=== PATIENT | female | born 1975 | race Caucasian/White ===

== ENCOUNTER 2021-12-31 12:52 | Inpatient (IN) | payer OTHER ==
[2021-12-31] MEDS ORDERED: VANCOMYCIN 1 GM in D5W (PRE-DOCKED) 1,000 MG/250 ML IVPB ONE (16:37)
[2021-12-31] MEDS ORDERED: PIPERACILLIN/TAZOB 3.375 GM 3.375 GM in DEXTROSE 5%-WATER - 50 ML IVPB ONE (16:37)
[2021-12-31] MEDS ORDERED: PIPERACILLIN/TAZOB 3.375 GM 3.375 GM/50 ML BAG IVPB ONE (17:36)
[2021-12-31] MEDS ORDERED: VANCOMYCIN 1 GRAM (PRE-DOCKED) 1,000 MG/250 ML BAG IVPB ONE (17:36)
[2021-12-31 17:37] LABS: BASO % 0.8 % (0-2.0); EOS % 5.8 % (0-4.5); HEMOGLOBIN 11.9 GM/dL (10.7-15.3); LYMPH % 30.6 % (8-40); MCH 25.5 pg (25.7-33.7); MCHC 32.1 g/dl (32.0-36.0); MEAN CELL VOLUME 79.2 fl (80-96); MEAN PLT VOLUME 8.1 fl (7.5-11.1); MONO % 9.9 % (3.8-10.2); NEUT % 52.9 % (42.8-82.8); PLATELET COUNT 260 10^3/uL (134-434); RBC 4.67 M/mm3 (3.60-5.2); RDW 16.7 % (11.6-15.6); WHITE BLOOD COUNT 5.2 K/mm3 (4.0-10.0)
[2021-12-31 17:51] LABS: CALCIUM 8.8 mg/dL (8.5-10.1)
[2021-12-31 17:53] LABS: ALBUMIN 3.6 g/dl (3.4-5.0)
[2021-12-31 17:56] LABS: CREATININE 0.6 mg/dL (0.55-1.3)
[2021-12-31 17:57] LABS: BILIRUBIN,TOTAL 0.4 mg/dL (0.2-1)
[2021-12-31 17:58] LABS: TOT PROT 7.8 g/dl (6.4-8.2)
[2021-12-31] MEDS: ENOXAPARIN NA (PORCINE) 40 MG/0.4 ML DISP.SYRIN SQ SCH (23:04)
[2022-01-01] MEDS ORDERED: DEXTROSE 5%-WATER - 50 ML IVPB ONE ×2 (01:45→09:55)
[2022-01-01] MEDS ORDERED: PIPERACILLIN/TAZOBACTAM 3.375 GM VIAL IVPB ONE ×3 (01:45→16:58)
[2022-01-01] MEDS: PIPERACILLIN/TAZOB 3.375 GM 3.375 GM in DEXTROSE 5%-WATER - 50 ML IVPB SCH ×4 (01:59→17:10)
[2022-01-01] MEDS ORDERED: VANCOMYCIN 1 GM in D5W (PRE-DOCKED) 1,000 MG/250 ML IVPB ONE (02:00)
[2022-01-01] MEDS ORDERED: VANCOMYCIN 1 GM/200 ML PREMIX BAG IVPB ONE (02:00)
[2022-01-01 03:43] VITALS: BMI 44.8
[2022-01-01 08:28] LABS: HEMATOCRIT 34.3 % (32.4-45.2); HEMOGLOBIN 10.9 GM/dL (10.7-15.3); MCH 25.2 pg (25.7-33.7); MCHC 31.7 g/dl (32.0-36.0); MEAN CELL VOLUME 79.5 fl (80-96); MEAN PLT VOLUME 8.7 fl (7.5-11.1); PLATELET COUNT 256 10^3/uL (134-434); RBC 4.31 M/mm3 (3.60-5.2); RDW 16.7 % (11.6-15.6); WHITE BLOOD COUNT 5.1 K/mm3 (4.0-10.0)
[2022-01-01 08:46] LABS: CALCIUM 8.6 mg/dL (8.5-10.1)
[2022-01-01 08:48] LABS: ALBUMIN 3.1 g/dl (3.4-5.0); BLOOD UREA NITROGEN 9.6 mg/dL (7-18)
[2022-01-01 08:51] LABS: CREATININE 0.7 mg/dL (0.55-1.3)
[2022-01-01 08:52] LABS: BILIRUBIN,TOTAL 0.3 mg/dL (0.2-1); TOT PROT 6.4 g/dl (6.4-8.2)
[2022-01-01] MEDS ORDERED: MECLIZINE HCL 12.5 MG TABLET PO PRN (09:27)
[2022-01-01] MEDS: ASPIRIN 81 MG CHEWABLE TABLETS PO SCH (09:57)
[2022-01-01] MEDS ORDERED: VANCOMYCIN/WATER 1,250 MG/250 ML BAG IVPB SCH (10:00)
[2022-01-01] MEDS ORDERED: CLOPIDOGREL BISULFATE 75 MG TABLET (FP) PO SCH (10:00)
[2022-01-01] MEDS: ENOXAPARIN NA (PORCINE) 40 MG/0.4 ML DISP.SYRIN SQ SCH ×2 (10:00→22:12)
[2022-01-01] MEDS ORDERED: VANCOMYCIN/WATER BAGS 1,250 MG/250 ML BAG IVPB SCH (10:00)
[2022-01-01] MEDS ORDERED: VANCOMYCIN 1 GM in D5W (PRE-DOCKED) 1,000 MG/250 ML IVPB SCH (10:00)
[2022-01-01] MEDS: ACETAMINOPHEN 325 MG TABLET (FP) PO PRN (22:17)
[2022-01-02] MEDS ORDERED: PIPERACILLIN/TAZOBACTAM 3.375 GM VIAL IVPB ONE ×3 (01:09→17:17)
[2022-01-02] MEDS ORDERED: DEXTROSE 5%-WATER - 50 ML IVPB ONE ×3 (01:09→17:17)
[2022-01-02] MEDS: PIPERACILLIN/TAZOB 3.375 GM 3.375 GM in DEXTROSE 5%-WATER - 50 ML IVPB SCH ×4 (01:50→17:46)
[2022-01-02 08:22] LABS: HEMATOCRIT 34.6 % (32.4-45.2); MCH 25.1 pg (25.7-33.7); MCHC 31.7 g/dl (32.0-36.0); MEAN CELL VOLUME 79.2 fl (80-96); MEAN PLT VOLUME 8.5 fl (7.5-11.1); PLATELET COUNT 247 10^3/uL (134-434); RBC 4.37 M/mm3 (3.60-5.2); RDW 16.3 % (11.6-15.6); WHITE BLOOD COUNT 3.9 K/mm3 (4.0-10.0)
[2022-01-02 08:42] LABS: CALCIUM 8.5 mg/dL (8.5-10.1)
[2022-01-02 08:43] LABS: ALBUMIN 2.9 g/dl (3.4-5.0); BLOOD UREA NITROGEN 12.3 mg/dL (7-18)
[2022-01-02 08:46] LABS: CREATININE 0.6 mg/dL (0.55-1.3)
[2022-01-02 08:48] LABS: BILIRUBIN,TOTAL 0.3 mg/dL (0.2-1); TOT PROT 6.3 g/dl (6.4-8.2)
[2022-01-02] MEDS: ENOXAPARIN NA (PORCINE) 40 MG/0.4 ML DISP.SYRIN SQ SCH ×2 (10:26→21:04)
[2022-01-02] MEDS: ASPIRIN 81 MG CHEWABLE TABLETS PO SCH (10:26)
[2022-01-02] MEDS: ACETAMINOPHEN 325 MG TABLET (FP) PO PRN (21:04)
[2022-01-03] MEDS ORDERED: DEXTROSE 5%-WATER - 50 ML IVPB ONE ×3 (01:21→18:02)
[2022-01-03] MEDS ORDERED: PIPERACILLIN/TAZOBACTAM 3.375 GM VIAL IVPB ONE ×3 (01:21→18:01)
[2022-01-03] MEDS: PIPERACILLIN/TAZOB 3.375 GM 3.375 GM in DEXTROSE 5%-WATER - 50 ML IVPB SCH ×3 (01:49→18:28)
[2022-01-03] MEDS: ENOXAPARIN NA (PORCINE) 40 MG/0.4 ML DISP.SYRIN SQ SCH ×2 (10:33→21:47)
[2022-01-03] MEDS: ASPIRIN 81 MG CHEWABLE TABLETS PO SCH (10:33)
[2022-01-03] MEDS: ACETAMINOPHEN 325 MG TABLET (FP) PO PRN (21:50)
[2022-01-04] MEDS ORDERED: PIPERACILLIN/TAZOBACTAM 3.375 GM VIAL IVPB ONE ×3 (01:27→18:05)
[2022-01-04] MEDS ORDERED: DEXTROSE 5%-WATER - 50 ML IVPB ONE ×2 (01:27→18:06)
[2022-01-04] MEDS: PIPERACILLIN/TAZOB 3.375 GM 3.375 GM in DEXTROSE 5%-WATER - 50 ML IVPB SCH ×3 (02:09→18:15)
[2022-01-04] MEDS: ENOXAPARIN NA (PORCINE) 40 MG/0.4 ML DISP.SYRIN SQ SCH (09:18)
[2022-01-04] MEDS: ASPIRIN 81 MG CHEWABLE TABLETS PO SCH (09:20)
[2022-01-04] MEDS ORDERED: POLYETHYLENE GLYCOL (HEALTHYLAX) 3350 17 GM PACKET PO ONE (10:53)
[2022-01-04] MEDS ORDERED: SENNOSIDES/DOCUSATE COMBO (SENNA PLUS) TABLET (UD) PO ONE (10:54)
[2022-01-04] MEDS ORDERED: SIMETHICONE 40 MG/0.6 ML BOTTLE PO ONE (13:14)
[2022-01-04] MEDS ORDERED: SIMETHICONE 80 MG TAB.CHEW (FP) PO ONE (14:00)
[2022-01-04] MEDS: ACETAMINOPHEN 325 MG TABLET (FP) PO PRN (14:04)
[2022-01-04 15:01] VITALS: TEMP 97.3
[2022-01-04 15:20] VITALS: BP 141/88; PULSE 68
== END 2022-01-04 19:13 | disposition home health service (06) | DRG 383 ==
LOC: JER 12:52 → JERBED 16:36 → J8W 01-01 00:40
PROVIDERS: ADMIT Internal Medicine; ATTEND Internal Medicine
PROC: 05HB33Z Insertion of Infusion Device into Right Basilic Vein, Percutaneous Approach (ICD-10-PCS; principal; 2022-01-01)
PROC: B51MZZA Fluoroscopy of Right Upper Extremity Veins, Guidance (ICD-10-PCS; 2022-01-01)
DX: L03.116 Cellulitis of left lower limb (principal); L97.919 Non-pressure chronic ulcer of unspecified part of right lower leg with unspecified severity; Z68.41 Body mass index [BMI] 40.0-44.9, adult; I87.2 Venous insufficiency (chronic) (peripheral); E66.01 Morbid (severe) obesity due to excess calories
CPT/HCPCS: 29581-RT; 36415; 36569; 71045-TC-FY; 74018-TC-FY; 80053; 80061; 83036; 83605; 84132; 84443; 85025; 85027; 86140; 87040; 87070; 87186; 87205; 88305-TC; 93005; 93010; 99285-25; C9803-CS; G0463-25; U0003; U0005

== ENCOUNTER 2022-03-27 11:08 | Inpatient (IN) | payer OTHER ==
[2022-03-27] MEDS ORDERED: ACETAMINOPHEN 1000 MG/100 ML BAG IVPB ONE (11:52)
[2022-03-27] MEDS ORDERED: ACETAMINOPHEN INJECTION 100 ML IVPB ONE (11:59)
[2022-03-27 12:30] LABS: BASO % 0.7 % (0-2.0); EOS % 4.7 % (0-4.5); HEMATOCRIT 37.3 % (32.4-45.2); HEMOGLOBIN 11.9 GM/dL (10.7-15.3); LYMPH % 37.4 % (8-40); MCH 25.6 pg (25.7-33.7); MCHC 31.9 g/dl (32.0-36.0); MEAN CELL VOLUME 80.1 fl (80-96); MEAN PLT VOLUME 8.5 fl (7.5-11.1); MONO % 11.4 % (3.8-10.2); NEUT % 45.8 % (42.8-82.8); PLATELET COUNT 253 10^3/uL (134-434); RBC 4.66 M/mm3 (3.60-5.2); RDW 17.1 % (11.6-15.6); WHITE BLOOD COUNT 4.5 K/mm3 (4.0-10.0)
[2022-03-27] MEDS ORDERED: VANCOMYCIN 1 GM in D5W (PRE-DOCKED) 1,000 MG/250 ML IVPB ONE (12:31)
[2022-03-27] MEDS ORDERED: PIPERACILLIN/TAZOB 4.5 GM 4.5 GM in DEXTROSE 5%-WATER 100 ML IVPB ONE (12:31)
[2022-03-27 12:37] LABS: INR 1.02 (0.83-1.09); PROTHROMBIN TIME (PATIENT) 11.7 SEC (9.7-13.0)
[2022-03-27] MEDS ORDERED: PIPERACILLIN/TAZOB 4.5 GM 4.5 GM/100 ML BAG IVPB ONE (12:39)
[2022-03-27 12:40] LABS: ACTIVATED PTT 30.9 SECONDS (25.2-36.5)
[2022-03-27 12:53] LABS: ALBUMIN 3.8 g/dl (3.4-5.0); BLOOD UREA NITROGEN 12.6 mg/dL (7-18); CALCIUM 8.9 mg/dL (8.5-10.1)
[2022-03-27 12:56] LABS: CREATININE 0.5 mg/dL (0.55-1.3)
[2022-03-27 12:58] LABS: BILIRUBIN,TOTAL 0.4 mg/dL (0.2-1); TOT PROT 7.6 g/dl (6.4-8.2)
[2022-03-27] MEDS ORDERED: VANCOMYCIN PREMIX 1.75 GM 1,750 MG/350 ML PIGGYBACK IVPB ONE (13:00)
[2022-03-27 14:44] LABS: ERYTHROCYTE SEDIMENTATION RATE 12 mm/hr (0-20)
[2022-03-27] MEDS ORDERED: PIPERACILLIN/TAZOBACTAM 3.375 GM VIAL IVPB ONE (21:43)
[2022-03-27] MEDS ORDERED: DEXTROSE 5%-WATER - 50 ML IVPB ONE (21:43)
[2022-03-27] MEDS: PIPERACILLIN/TAZOB 3.375 GM 3.375 GM in DEXTROSE 5%-WATER - 50 ML IVPB SCH (21:48)
[2022-03-27] MEDS: ACETAMINOPHEN 325 MG TABLET (FP) PO PRN (21:49)
[2022-03-27 23:57] VITALS: BMI 46.3
[2022-03-28] MEDS ORDERED: PIPERACILLIN/TAZOBACTAM 3.375 GM VIAL IVPB ONE ×3 (00:42→12:09)
[2022-03-28] MEDS ORDERED: DEXTROSE 5%-WATER - 50 ML IVPB ONE ×3 (00:43→12:09)
[2022-03-28] MEDS: PIPERACILLIN/TAZOB 3.375 GM 3.375 GM in DEXTROSE 5%-WATER - 50 ML IVPB SCH ×3 (00:59→12:10)
[2022-03-28 09:14] LABS: CALCIUM 8.9 mg/dL (8.5-10.1)
[2022-03-28 09:15] LABS: ALBUMIN 3.2 g/dl (3.4-5.0)
[2022-03-28 09:18] LABS: CREATININE 0.7 mg/dL (0.55-1.3)
[2022-03-28 09:20] LABS: BILIRUBIN,TOTAL 0.6 mg/dL (0.2-1); TOT PROT 6.7 g/dl (6.4-8.2)
[2022-03-28 09:24] LABS: HEMATOCRIT 36.4 % (32.4-45.2); HEMOGLOBIN 11.4 GM/dL (10.7-15.3); MCH 25.2 pg (25.7-33.7); MCHC 31.4 g/dl (32.0-36.0); MEAN CELL VOLUME 80.3 fl (80-96); PLATELET COUNT 245 10^3/uL (134-434); RBC 4.54 M/mm3 (3.60-5.2); RDW 16.9 % (11.6-15.6); WHITE BLOOD COUNT 4.5 K/mm3 (4.0-10.0)
[2022-03-28] MEDS: CLOPIDOGREL BISULFATE 75 MG TABLET (FP) PO SCH (09:33)
[2022-03-28] MEDS: ASPIRIN 81 MG CHEWABLE TABLETS PO SCH (09:33)
[2022-03-28] MEDS: ACETAMINOPHEN 325 MG TABLET (FP) PO PRN (09:35)
[2022-03-28] MEDS ORDERED: VANCOMYCIN/WATER 2 GM/400 ML PREMIX BAG IVPB SCH (10:00)
[2022-03-28] MEDS ORDERED: VANCOMYCIN PREMIX 1.5 GM 1,500 MG/300 ML BAG IVPB SCH (14:00)
[2022-03-28] MEDS ORDERED: MEROPENEM 1 GM VIAL (RESTRICTED TO ID) IVPB ONE (17:42)
[2022-03-28] MEDS: MEROPENEM 1 GM in DEXTROSE 5%-WATER 100 ML IVPB SCH (17:48)
[2022-03-28] MEDS ORDERED: PIPERACILLIN/TAZOB 3.375 GM 3.375 GM in DEXTROSE 5%-WATER - 50 ML IVPB SCH (19:00)
[2022-03-29] MEDS ORDERED: MEROPENEM 1 GM VIAL (RESTRICTED TO ID) IVPB ONE ×3 (01:19→17:34)
[2022-03-29] MEDS ORDERED: DEXTROSE 5%-WATER 100 ML IVPB ONE ×3 (01:19→17:35)
[2022-03-29] MEDS: MEROPENEM 1 GM in DEXTROSE 5%-WATER 100 ML IVPB SCH ×3 (01:20→18:05)
[2022-03-29] MEDS: ASPIRIN 81 MG CHEWABLE TABLETS PO SCH (09:09)
[2022-03-29] MEDS: CLOPIDOGREL BISULFATE 75 MG TABLET (FP) PO SCH (09:09)
[2022-03-29] MEDS: ACETAMINOPHEN 325 MG TABLET (FP) PO PRN (09:09)
[2022-03-29] MEDS: COLLAGENASE CLOSTRIDIUM HIST. 30 GRAMS TUBE TP SCH (10:19)
[2022-03-29] MEDS ORDERED: VANCOMYCIN PREMIX 1.5 GM 1,500 MG/300 ML BAG IVPB SCH (14:00)
[2022-03-30] MEDS ORDERED: MEROPENEM 1 GM VIAL (RESTRICTED TO ID) IVPB ONE ×3 (01:15→17:50)
[2022-03-30] MEDS ORDERED: DEXTROSE 5%-WATER 100 ML IVPB ONE ×3 (01:15→17:50)
[2022-03-30] MEDS: MEROPENEM 1 GM in DEXTROSE 5%-WATER 100 ML IVPB SCH ×3 (02:10→18:33)
[2022-03-30] MEDS ORDERED: ACETAMINOPHEN 1000 MG/100 ML BAG IVPB ONE (05:10)
[2022-03-30] MEDS: ASPIRIN 81 MG CHEWABLE TABLETS PO SCH (10:36)
[2022-03-30] MEDS: CLOPIDOGREL BISULFATE 75 MG TABLET (FP) PO SCH (10:36)
[2022-03-30 10:39] LABS: BASO % 0.8 % (0-2.0); EOS % 3.4 % (0-4.5); HEMATOCRIT 37.9 % (32.4-45.2); HEMOGLOBIN 12.3 GM/dL (10.7-15.3); LYMPH % 35.1 % (8-40); MCH 25.8 pg (25.7-33.7); MCHC 32.5 g/dl (32.0-36.0); MEAN CELL VOLUME 79.5 fl (80-96); MEAN PLT VOLUME 8.8 fl (7.5-11.1); MONO % 6.9 % (3.8-10.2); NEUT % 53.8 % (42.8-82.8); PLATELET COUNT 247 10^3/uL (134-434); RBC 4.76 M/mm3 (3.60-5.2); RDW 16.7 % (11.6-15.6)
[2022-03-30 10:52] LABS: ALBUMIN 3.3 g/dl (3.4-5.0); CALCIUM 8.8 mg/dL (8.5-10.1)
[2022-03-30 10:53] LABS: MAGNESIUM 2.5 mg/dL (1.8-2.4)
[2022-03-30 10:56] LABS: CREATININE 0.7 mg/dL (0.55-1.3); PHOSPHOROUS 3.6 mg/dL (2.5-4.9)
[2022-03-30 10:57] LABS: BILIRUBIN,TOTAL 0.3 mg/dL (0.2-1); TOT PROT 6.9 g/dl (6.4-8.2)
[2022-03-30] MEDS: COLLAGENASE CLOSTRIDIUM HIST. 30 GRAMS TUBE TP SCH (11:37)
[2022-03-30] MEDS: ACETAMINOPHEN 325 MG TABLET (FP) PO PRN (14:31)
[2022-03-30 22:05] LABS: URINE APPEARANCE CLEAR; URINE BILIRUBIN NEGATIVE (NEGATIVE); URINE COLOR YELLOW; URINE GLUCOSE (UA) NEGATIVE (NEGATIVE); URINE KETONE NEGATIVE (NEGATIVE); URINE LEUK ESTERASE NEGATIVE (NEGATIVE); URINE NITRITE NEGATIVE (NEGATIVE); URINE PROTEIN NEGATIVE (NEGATIVE)
[2022-03-31] MEDS ORDERED: MEROPENEM 1 GM VIAL (RESTRICTED TO ID) IVPB ONE ×3 (01:34→16:43)
[2022-03-31] MEDS ORDERED: DEXTROSE 5%-WATER 100 ML IVPB ONE ×3 (01:35→16:43)
[2022-03-31] MEDS: MEROPENEM 1 GM in DEXTROSE 5%-WATER 100 ML IVPB SCH ×3 (02:03→17:05)
[2022-03-31] MEDS: CLOPIDOGREL BISULFATE 75 MG TABLET (FP) PO SCH (09:35)
[2022-03-31] MEDS: ASPIRIN 81 MG CHEWABLE TABLETS PO SCH (09:35)
[2022-03-31] MEDS: COLLAGENASE CLOSTRIDIUM HIST. 30 GRAMS TUBE TP SCH (09:35)
[2022-03-31] MEDS: ACETAMINOPHEN 325 MG TABLET (FP) PO PRN (21:48)
[2022-04-01] MEDS ORDERED: MEROPENEM 1 GM VIAL (RESTRICTED TO ID) IVPB ONE ×3 (01:58→21:54)
[2022-04-01] MEDS ORDERED: DEXTROSE 5%-WATER 100 ML IVPB ONE ×3 (01:59→21:54)
[2022-04-01] MEDS: MEROPENEM 1 GM in DEXTROSE 5%-WATER 100 ML IVPB SCH ×3 (02:10→22:29)
[2022-04-01 09:41] LABS: HEMATOCRIT 39.8 % (32.4-45.2); HEMOGLOBIN 12.6 GM/dL (10.7-15.3); MCH 25.3 pg (25.7-33.7); MCHC 31.7 g/dl (32.0-36.0); MEAN CELL VOLUME 79.7 fl (80-96); MEAN PLT VOLUME 8.4 fl (7.5-11.1); PLATELET COUNT 233 10^3/uL (134-434); RBC 4.99 M/mm3 (3.60-5.2); RDW 16.9 % (11.6-15.6); WHITE BLOOD COUNT 4.2 K/mm3 (4.0-10.0)
[2022-04-01 09:55] LABS: BLOOD UREA NITROGEN 16.3 mg/dL (7-18)
[2022-04-01 09:58] LABS: CREATININE 0.7 mg/dL (0.55-1.3)
[2022-04-01] MEDS: ASPIRIN 81 MG CHEWABLE TABLETS PO SCH (10:50)
[2022-04-01] MEDS: CLOPIDOGREL BISULFATE 75 MG TABLET (FP) PO SCH (10:50)
[2022-04-01] MEDS: ACETAMINOPHEN 325 MG TABLET (FP) PO PRN (10:50)
[2022-04-01] MEDS: COLLAGENASE CLOSTRIDIUM HIST. 30 GRAMS TUBE TP SCH (10:53)
[2022-04-02] MEDS ORDERED: DEXTROSE 5%-WATER 100 ML IVPB ONE ×3 (06:53→21:45)
[2022-04-02] MEDS ORDERED: MEROPENEM 1 GM VIAL (RESTRICTED TO ID) IVPB ONE ×3 (06:53→21:45)
[2022-04-02] MEDS: MEROPENEM 1 GM in DEXTROSE 5%-WATER 100 ML IVPB SCH ×3 (06:54→22:34)
[2022-04-02 09:33] LABS: HEMATOCRIT 37.5 % (32.4-45.2); HEMOGLOBIN 12.1 GM/dL (10.7-15.3); MCH 25.6 pg (25.7-33.7); MCHC 32.3 g/dl (32.0-36.0); MEAN CELL VOLUME 79.1 fl (80-96); MEAN PLT VOLUME 8.5 fl (7.5-11.1); PLATELET COUNT 240 10^3/uL (134-434); RBC 4.74 M/mm3 (3.60-5.2); RDW 17.1 % (11.6-15.6); WHITE BLOOD COUNT 4.7 K/mm3 (4.0-10.0)
[2022-04-02 10:09] LABS: BLOOD UREA NITROGEN 18.2 mg/dL (7-18); CALCIUM 9.1 mg/dL (8.5-10.1)
[2022-04-02 10:12] LABS: CREATININE 0.6 mg/dL (0.55-1.3)
[2022-04-02] MEDS: ASPIRIN 81 MG CHEWABLE TABLETS PO SCH (11:41)
[2022-04-02] MEDS: CLOPIDOGREL BISULFATE 75 MG TABLET (FP) PO SCH (11:41)
[2022-04-02] MEDS: ACETAMINOPHEN 325 MG TABLET (FP) PO PRN (14:20)
[2022-04-02] MEDS: COLLAGENASE CLOSTRIDIUM HIST. 30 GRAMS TUBE TP SCH (17:56)
[2022-04-03] MEDS ORDERED: DEXTROSE 5%-WATER 100 ML IVPB ONE ×3 (06:11→22:01)
[2022-04-03] MEDS ORDERED: MEROPENEM 1 GM VIAL (RESTRICTED TO ID) IVPB ONE ×3 (06:11→22:00)
[2022-04-03] MEDS: MEROPENEM 1 GM in DEXTROSE 5%-WATER 100 ML IVPB SCH ×3 (06:13→22:04)
[2022-04-03] MEDS: ASPIRIN 81 MG CHEWABLE TABLETS PO SCH (09:21)
[2022-04-03] MEDS: CLOPIDOGREL BISULFATE 75 MG TABLET (FP) PO SCH (09:21)
[2022-04-03] MEDS: COLLAGENASE CLOSTRIDIUM HIST. 30 GRAMS TUBE TP SCH (09:21)
[2022-04-03 09:49] LABS: BASO % 0.7 % (0-2.0); EOS % 5.1 % (0-4.5); HEMATOCRIT 38.9 % (32.4-45.2); HEMOGLOBIN 12.3 GM/dL (10.7-15.3); LYMPH % 38.7 % (8-40); MCH 25.4 pg (25.7-33.7); MCHC 31.6 g/dl (32.0-36.0); MEAN CELL VOLUME 80.1 fl (80-96); MEAN PLT VOLUME 8.8 fl (7.5-11.1); MONO % 9.5 % (3.8-10.2); PLATELET COUNT 256 10^3/uL (134-434); RBC 4.86 M/mm3 (3.60-5.2); RDW 16.6 % (11.6-15.6); WHITE BLOOD COUNT 4.7 K/mm3 (4.0-10.0)
[2022-04-03 10:16] LABS: CALCIUM 9.1 mg/dL (8.5-10.1)
[2022-04-03 10:17] LABS: BLOOD UREA NITROGEN 12.7 mg/dL (7-18)
[2022-04-03 10:20] LABS: CREATININE 0.5 mg/dL (0.55-1.3)
[2022-04-03] MEDS: ACETAMINOPHEN 325 MG TABLET (FP) PO PRN (22:03)
[2022-04-04] MEDS ORDERED: MEROPENEM 1 GM VIAL (RESTRICTED TO ID) IVPB ONE ×3 (05:55→22:06)
[2022-04-04] MEDS ORDERED: DEXTROSE 5%-WATER 100 ML IVPB ONE ×3 (05:55→22:06)
[2022-04-04] MEDS: MEROPENEM 1 GM in DEXTROSE 5%-WATER 100 ML IVPB SCH ×3 (06:07→22:41)
[2022-04-04] MEDS: ASPIRIN 81 MG CHEWABLE TABLETS PO SCH (09:19)
[2022-04-04] MEDS: COLLAGENASE CLOSTRIDIUM HIST. 30 GRAMS TUBE TP SCH (09:19)
[2022-04-04] MEDS: CLOPIDOGREL BISULFATE 75 MG TABLET (FP) PO SCH (09:19)
[2022-04-04 18:55] LABS: BASO % 0.7 % (0-2.0); EOS % 5.3 % (0-4.5); HEMATOCRIT 37.2 % (32.4-45.2); LYMPH % 36.7 % (8-40); MCH 25.6 pg (25.7-33.7); MCHC 32.3 g/dl (32.0-36.0); MEAN CELL VOLUME 79.2 fl (80-96); MEAN PLT VOLUME 8.4 fl (7.5-11.1); MONO % 9.7 % (3.8-10.2); NEUT % 47.6 % (42.8-82.8); PLATELET COUNT 243 10^3/uL (134-434); RDW 16.7 % (11.6-15.6)
[2022-04-04 19:17] LABS: CALCIUM 8.9 mg/dL (8.5-10.1)
[2022-04-04 19:18] LABS: BLOOD UREA NITROGEN 15.7 mg/dL (7-18)
[2022-04-04 19:21] LABS: CREATININE 0.7 mg/dL (0.55-1.3)
[2022-04-05] MEDS ORDERED: MEROPENEM 1 GM VIAL (RESTRICTED TO ID) IVPB ONE ×4 (06:06→22:14)
[2022-04-05] MEDS ORDERED: DEXTROSE 5%-WATER 100 ML IVPB ONE ×4 (06:07→22:14)
[2022-04-05] MEDS: MEROPENEM 1 GM in DEXTROSE 5%-WATER 100 ML IVPB SCH ×3 (06:09→22:20)
[2022-04-05] MEDS: ASPIRIN 81 MG CHEWABLE TABLETS PO SCH (09:47)
[2022-04-05] MEDS: ACETAMINOPHEN 325 MG TABLET (FP) PO PRN ×2 (09:47→23:47)
[2022-04-05] MEDS: CLOPIDOGREL BISULFATE 75 MG TABLET (FP) PO SCH (09:47)
[2022-04-06] MEDS ORDERED: DEXTROSE 5%-WATER 100 ML IVPB ONE ×3 (05:28→22:50)
[2022-04-06] MEDS ORDERED: MEROPENEM 1 GM VIAL (RESTRICTED TO ID) IVPB ONE ×3 (05:28→22:50)
[2022-04-06] MEDS: MEROPENEM 1 GM in DEXTROSE 5%-WATER 100 ML IVPB SCH ×3 (06:19→22:51)
[2022-04-06] MEDS: ASPIRIN 81 MG CHEWABLE TABLETS PO SCH (09:03)
[2022-04-06] MEDS: CLOPIDOGREL BISULFATE 75 MG TABLET (FP) PO SCH (09:03)
[2022-04-07] MEDS ORDERED: MEROPENEM 1 GM VIAL (RESTRICTED TO ID) IVPB ONE ×3 (06:30→23:22)
[2022-04-07] MEDS ORDERED: DEXTROSE 5%-WATER 100 ML IVPB ONE ×3 (06:30→23:23)
[2022-04-07] MEDS: MEROPENEM 1 GM in DEXTROSE 5%-WATER 100 ML IVPB SCH ×3 (06:33→23:24)
[2022-04-07] MEDS: CLOPIDOGREL BISULFATE 75 MG TABLET (FP) PO SCH (10:20)
[2022-04-07] MEDS: ASPIRIN 81 MG CHEWABLE TABLETS PO SCH (10:20)
[2022-04-07 18:09] VITALS: RESP 18
[2022-04-07] MEDS: MECLIZINE HCL 25 MG TABLET (FP) PO PRN (19:33)
[2022-04-08] MEDS ORDERED: MEROPENEM 1 GM VIAL (RESTRICTED TO ID) IVPB ONE ×2 (06:40→15:17)
[2022-04-08] MEDS ORDERED: DEXTROSE 5%-WATER 100 ML IVPB ONE ×2 (06:40→15:17)
[2022-04-08] MEDS: MEROPENEM 1 GM in DEXTROSE 5%-WATER 100 ML IVPB SCH ×2 (06:41→15:26)
[2022-04-08] MEDS: MECLIZINE HCL 25 MG TABLET (FP) PO PRN (06:47)
[2022-04-08] MEDS: CLOPIDOGREL BISULFATE 75 MG TABLET (FP) PO SCH (10:45)
[2022-04-08] MEDS: ASPIRIN 81 MG CHEWABLE TABLETS PO SCH (10:45)
[2022-04-08 14:45] VITALS: BP 124/80; PULSE 67; TEMP 97.7
== END 2022-04-08 18:16 | DRG 197 ==
LOC: JER 11:08 → JERBED 14:07 → J6S 21:29 → J5S 03-29 23:59
PROVIDERS: ADMIT Internal Medicine; ATTEND Internal Medicine
PROC: 02HV33Z Insertion of Infusion Device into Superior Vena Cava, Percutaneous Approach (ICD-10-PCS; principal; 2022-04-05)
PROC: B518ZZA Fluoroscopy of Superior Vena Cava, Guidance (ICD-10-PCS; 2022-04-05)
DX: I83.013 Varicose veins of right lower extremity with ulcer of ankle (principal); L97.318 Non-pressure chronic ulcer of right ankle with other specified severity; L03.115 Cellulitis of right lower limb; I87.2 Venous insufficiency (chronic) (peripheral); J45.909 Unspecified asthma, uncomplicated; L08.9 Local infection of the skin and subcutaneous tissue, unspecified; M79.662 Pain in left lower leg; M79.661 Pain in right lower leg; E66.01 Morbid (severe) obesity due to excess calories; Z68.41 Body mass index [BMI] 40.0-44.9, adult; R19.09 Other intra-abdominal and pelvic swelling, mass and lump; H81.10 Benign paroxysmal vertigo, unspecified ear; B96.5 Pseudomonas (aeruginosa) (mallei) (pseudomallei) as the cause of diseases classified elsewhere
CPT/HCPCS: 36415; 36569; 73590-TC-RT-FY; 73718-TC-RT; 74018-TC-FY; 74177-TC; 80048; 80053; 81003; 82272; 83036; 83735; 84100; 85025; 85027; 85610; 85651; 85730; 86140; 87040; 87086; 93005; 93010; 93970-TC; 99285-25; C9803-CS; J3370; Q9967; U0003; U0005

== ENCOUNTER 2022-06-05 09:47 | Inpatient (IN) | payer OTHER ==
[2022-06-05] MEDS ORDERED: lamoTRIgine 100 MG TABLET PO ONE (10:12)
[2022-06-05] MEDS ORDERED: ACETAMINOPHEN 325 MG TABLET (FP) PO ONE (10:28)
[2022-06-05] MEDS ORDERED: MEROPENEM 1 GM in DEXTROSE 5%-WATER 100 ML IVPB ONE (10:28)
[2022-06-05] MEDS ORDERED: MEROPENEM 1 GM VIAL (RESTRICTED TO ID) IVPB ONE (11:04)
[2022-06-05] MEDS ORDERED: ACETAMINOPHEN 650 MG/20.3 ML ORAL SOLUTION (CUPS) ONE (11:04)
[2022-06-05] MEDS ORDERED: ACETAMINOPHEN 325 MG TABLET (FP) ONE (11:06)
[2022-06-05 12:20] LABS: BASO % 0.6 % (0-2.0); EOS % 7.4 % (0-4.5); HEMATOCRIT 37.4 % (32.4-45.2); HEMOGLOBIN 11.5 GM/dL (10.7-15.3); LYMPH % 21.8 % (8-40); MCH 25.2 pg (25.7-33.7); MCHC 30.8 g/dl (32.0-36.0); MEAN CELL VOLUME 81.9 fl (80-96); MEAN PLT VOLUME 8.6 fl (7.5-11.1); MONO % 9.9 % (3.8-10.2); NEUT % 60.3 % (42.8-82.8); PLATELET COUNT 297 10^3/uL (134-434); RBC 4.57 M/mm3 (3.60-5.2); RDW 16.8 % (11.6-15.6); WHITE BLOOD COUNT 5.3 K/mm3 (4.0-10.0)
[2022-06-05 12:26] LABS: INR 1.02 (0.83-1.09); PROTHROMBIN TIME (PATIENT) 11.7 SEC (9.7-13.0)
[2022-06-05 12:29] LABS: ACTIVATED PTT 29.9 SECONDS (25.2-36.5)
[2022-06-05 12:41] LABS: ALBUMIN 3.4 g/dl (3.4-5.0); CALCIUM 8.7 mg/dL (8.5-10.1)
[2022-06-05 12:42] LABS: BLOOD UREA NITROGEN 20.4 mg/dL (7-18)
[2022-06-05 12:45] LABS: CREATININE 0.7 mg/dL (0.55-1.3)
[2022-06-05 12:46] LABS: BILIRUBIN,TOTAL 0.2 mg/dL (0.2-1)
[2022-06-05] MEDS: CLOPIDOGREL BISULFATE 75 MG TABLET (FP) PO SCH (14:10)
[2022-06-05] MEDS: ASPIRIN 81 MG CHEWABLE TABLETS PO SCH (14:10)
[2022-06-05] MEDS ORDERED: CLOPIDOGREL BISULFATE 75 MG TABLET (FP) ONE ×2 (14:37→14:53)
[2022-06-05] MEDS ORDERED: ASPIRIN 81 MG CHEWABLE TABLETS ONE (14:38)
[2022-06-05 14:40] LABS: URINE APPEARANCE CLEAR; URINE BILIRUBIN NEGATIVE (NEGATIVE); URINE COLOR YELLOW; URINE GLUCOSE (UA) NEGATIVE (NEGATIVE); URINE KETONE NEGATIVE (NEGATIVE); URINE LEUK ESTERASE NEGATIVE (NEGATIVE); URINE NITRITE NEGATIVE (NEGATIVE); URINE PROTEIN NEGATIVE (NEGATIVE); URINE UROBILINOGEN 0.2 mg/dL (0.2-1.0)
[2022-06-05] MEDS ORDERED: KETOROLAC TROMETHAMINE 15 MG/ML VIAL ONE (15:25)
[2022-06-05] MEDS: KETOROLAC TROMETHAMINE 15 MG/ML VIAL IVPUSH PRN (15:36)
[2022-06-05] MEDS ORDERED: PIPERACILLIN/TAZOB 3.375 GM 3.375 GM/50 ML BAG IVPB ONE (17:27)
[2022-06-05] MEDS: PIPERACILLIN/TAZOB 3.375 GM 3.375 GM in DEXTROSE 5%-WATER - 50 ML IVPB SCH (17:29)
[2022-06-05] MEDS ORDERED: ATORVASTATIN CA 40 MG TABLET (FP) PO SCH (22:00)
[2022-06-06] MEDS: ENOXAPARIN NA (PORCINE) 40 MG/0.4 ML DISP.SYRIN SQ SCH ×3 (00:42→21:44)
[2022-06-06] MEDS: PIPERACILLIN/TAZOB 3.375 GM 3.375 GM in DEXTROSE 5%-WATER - 50 ML IVPB SCH ×3 (01:54→17:55)
[2022-06-06 04:45] VITALS: BMI 44.6
[2022-06-06] MEDS ORDERED: FLU VACC QS2022-23(6MOS UP)/PF 60 MCG/0.5 ML SYRINGE IM ONE (09:00)
[2022-06-06] MEDS: ASPIRIN 81 MG CHEWABLE TABLETS PO SCH (09:44)
[2022-06-06] MEDS: CLOPIDOGREL BISULFATE 75 MG TABLET (FP) PO SCH (09:44)
[2022-06-06 10:01] LABS: HEMATOCRIT 33.9 % (32.4-45.2); HEMOGLOBIN 10.9 GM/dL (10.7-15.3); MCH 25.9 pg (25.7-33.7); MCHC 32.2 g/dl (32.0-36.0); MEAN CELL VOLUME 80.4 fl (80-96); MEAN PLT VOLUME 8.3 fl (7.5-11.1); PLATELET COUNT 257 10^3/uL (134-434); RBC 4.21 M/mm3 (3.60-5.2); RDW 16.5 % (11.6-15.6); WHITE BLOOD COUNT 4.1 K/mm3 (4.0-10.0)
[2022-06-06 10:44] LABS: CALCIUM 8.5 mg/dL (8.5-10.1)
[2022-06-06 10:45] LABS: MAGNESIUM 2.6 mg/dL (1.8-2.4)
[2022-06-06 10:48] LABS: CREATININE 0.6 mg/dL (0.55-1.3); PHOSPHOROUS 3.1 mg/dL (2.5-4.9)
[2022-06-06] MEDS: ACETAMINOPHEN 325 MG TABLET (FP) PO PRN (13:15)
[2022-06-07] MEDS: PIPERACILLIN/TAZOB 3.375 GM 3.375 GM in DEXTROSE 5%-WATER - 50 ML IVPB SCH ×3 (02:08→17:45)
[2022-06-07 08:44] LABS: BASO % 0.8 % (0-2.0); EOS % 7.5 % (0-4.5); HEMATOCRIT 35.1 % (32.4-45.2); HEMOGLOBIN 11.1 GM/dL (10.7-15.3); LYMPH % 34.7 % (8-40); MCH 25.5 pg (25.7-33.7); MCHC 31.7 g/dl (32.0-36.0); MEAN CELL VOLUME 80.5 fl (80-96); MEAN PLT VOLUME 8.6 fl (7.5-11.1); MONO % 13.7 % (3.8-10.2); NEUT % 43.3 % (42.8-82.8); PLATELET COUNT 268 10^3/uL (134-434); RBC 4.36 M/mm3 (3.60-5.2); RDW 16.4 % (11.6-15.6); WHITE BLOOD COUNT 4.7 K/mm3 (4.0-10.0)
[2022-06-07 09:10] LABS: CALCIUM 8.5 mg/dL (8.5-10.1); MAGNESIUM 2.6 mg/dL (1.8-2.4)
[2022-06-07 09:11] LABS: BLOOD UREA NITROGEN 15.7 mg/dL (7-18)
[2022-06-07 09:13] LABS: PHOSPHOROUS 3.2 mg/dL (2.5-4.9)
[2022-06-07 09:15] LABS: TOT PROT 6.4 g/dl (6.4-8.2)
[2022-06-07 09:17] LABS: CREATININE 0.7 mg/dL (0.55-1.3)
[2022-06-07 09:18] LABS: BILIRUBIN,TOTAL 0.5 mg/dL (0.2-1)
[2022-06-07] MEDS: ENOXAPARIN NA (PORCINE) 40 MG/0.4 ML DISP.SYRIN SQ SCH ×2 (10:08→22:32)
[2022-06-07] MEDS: ASPIRIN 81 MG CHEWABLE TABLETS PO SCH (10:09)
[2022-06-07] MEDS: ACETAMINOPHEN 325 MG TABLET (FP) PO PRN ×2 (10:13→17:55)
[2022-06-08] MEDS: PIPERACILLIN/TAZOB 3.375 GM 3.375 GM in DEXTROSE 5%-WATER - 50 ML IVPB SCH ×3 (01:41→18:10)
[2022-06-08] MEDS: KETOROLAC TROMETHAMINE 15 MG/ML VIAL IVPUSH PRN ×2 (01:47→10:01)
[2022-06-08 08:22] LABS: BASO % 0.8 % (0-2.0); EOS % 5.5 % (0-4.5); HEMOGLOBIN 11.3 GM/dL (10.7-15.3); LYMPH % 46.2 % (8-40); MCH 25.2 pg (25.7-33.7); MCHC 31.4 g/dl (32.0-36.0); MEAN CELL VOLUME 80.5 fl (80-96); MEAN PLT VOLUME 8.7 fl (7.5-11.1); MONO % 13.9 % (3.8-10.2); NEUT % 33.6 % (42.8-82.8); PLATELET COUNT 270 10^3/uL (134-434); RBC 4.47 M/mm3 (3.60-5.2); RDW 16.3 % (11.6-15.6); WHITE BLOOD COUNT 4.3 K/mm3 (4.0-10.0)
[2022-06-08 08:34] LABS: ALBUMIN 3.1 g/dl (3.4-5.0); BLOOD UREA NITROGEN 12.8 mg/dL (7-18); CALCIUM 8.6 mg/dL (8.5-10.1); MAGNESIUM 2.6 mg/dL (1.8-2.4)
[2022-06-08 08:37] LABS: CREATININE 0.7 mg/dL (0.55-1.3); PHOSPHOROUS 3.5 mg/dL (2.5-4.9)
[2022-06-08 08:39] LABS: BILIRUBIN,TOTAL 0.4 mg/dL (0.2-1); TOT PROT 6.5 g/dl (6.4-8.2)
[2022-06-08] MEDS: ASPIRIN 81 MG CHEWABLE TABLETS PO SCH (09:54)
[2022-06-08] MEDS: ENOXAPARIN NA (PORCINE) 40 MG/0.4 ML DISP.SYRIN SQ SCH ×2 (09:54→21:00)
[2022-06-09] MEDS: PIPERACILLIN/TAZOB 3.375 GM 3.375 GM in DEXTROSE 5%-WATER - 50 ML IVPB SCH ×3 (01:44→18:09)
[2022-06-09 09:19] LABS: BASO % 1.2 % (0-2.0); EOS % 5.3 % (0-4.5); HEMATOCRIT 35.2 % (32.4-45.2); HEMOGLOBIN 11.1 GM/dL (10.7-15.3); MCH 25.5 pg (25.7-33.7); MCHC 31.7 g/dl (32.0-36.0); MEAN CELL VOLUME 80.4 fl (80-96); MEAN PLT VOLUME 8.7 fl (7.5-11.1); MONO % 11.3 % (3.8-10.2); NEUT % 34.2 % (42.8-82.8); PLATELET COUNT 260 10^3/uL (134-434); RBC 4.38 M/mm3 (3.60-5.2); RDW 16.2 % (11.6-15.6); WHITE BLOOD COUNT 4.1 K/mm3 (4.0-10.0)
[2022-06-09] MEDS: ENOXAPARIN NA (PORCINE) 40 MG/0.4 ML DISP.SYRIN SQ SCH ×2 (09:21→21:29)
[2022-06-09] MEDS: ASPIRIN 81 MG CHEWABLE TABLETS PO SCH (09:21)
[2022-06-09 09:38] LABS: ALBUMIN 3.1 g/dl (3.4-5.0); CALCIUM 8.6 mg/dL (8.5-10.1)
[2022-06-09 09:39] LABS: BLOOD UREA NITROGEN 18.3 mg/dL (7-18); MAGNESIUM 2.4 mg/dL (1.8-2.4)
[2022-06-09 09:42] LABS: CREATININE 0.7 mg/dL (0.55-1.3); PHOSPHOROUS 3.8 mg/dL (2.5-4.9)
[2022-06-09 09:44] LABS: BILIRUBIN,TOTAL 0.5 mg/dL (0.2-1); TOT PROT 6.3 g/dl (6.4-8.2)
[2022-06-09 15:27] VITALS: RESP 18
[2022-06-10] MEDS: PIPERACILLIN/TAZOB 3.375 GM 3.375 GM in DEXTROSE 5%-WATER - 50 ML IVPB SCH ×3 (02:48→18:38)
[2022-06-10] MEDS: KETOROLAC TROMETHAMINE 15 MG/ML VIAL IVPUSH PRN (02:54)
[2022-06-10 11:33] LABS: BASO % 0.9 % (0-2.0); EOS % 4.4 % (0-4.5); HEMOGLOBIN 11.6 GM/dL (10.7-15.3); MCH 26.1 pg (25.7-33.7); MCHC 32.1 g/dl (32.0-36.0); MEAN CELL VOLUME 81.1 fl (80-96); MEAN PLT VOLUME 8.5 fl (7.5-11.1); MONO % 9.4 % (3.8-10.2); NEUT % 43.3 % (42.8-82.8); PLATELET COUNT 242 10^3/uL (134-434); RBC 4.44 M/mm3 (3.60-5.2); RDW 16.4 % (11.6-15.6); WHITE BLOOD COUNT 4.3 K/mm3 (4.0-10.0)
[2022-06-10] MEDS: ENOXAPARIN NA (PORCINE) 40 MG/0.4 ML DISP.SYRIN SQ SCH ×2 (11:38→21:51)
[2022-06-10] MEDS: ASPIRIN 81 MG CHEWABLE TABLETS PO SCH (11:38)
[2022-06-10 11:43] LABS: CHLORIDE 106 mmol/L (98-107); SODIUM 142 mmol/L (136-145)
[2022-06-10 11:46] LABS: CALCIUM 8.9 mg/dL (8.5-10.1)
[2022-06-10 11:47] LABS: ALBUMIN 3.2 g/dl (3.4-5.0); ANION GAP 7 MMOL/L (8-16); BLOOD UREA NITROGEN 19.4 mg/dL (7-18); CO2 28 mmol/L (21-32); GLUCOSE,RANDOM 104 mg/dL (74-106); MAGNESIUM 2.2 mg/dL (1.8-2.4)
[2022-06-10 11:50] LABS: CREATININE 0.7 mg/dL (0.55-1.3); PHOSPHOROUS 3.1 mg/dL (2.5-4.9); SGOT/AST 34 U/L (15-37); SGPT/ALT 46 U/L (13-61)
[2022-06-10 11:51] LABS: TOT PROT 6.8 g/dl (6.4-8.2)
[2022-06-10 11:53] LABS: ALK PHOS 81 U/L (45-117); BILIRUBIN,TOTAL 0.3 mg/dL (0.2-1)
[2022-06-11] MEDS: PIPERACILLIN/TAZOB 3.375 GM 3.375 GM in DEXTROSE 5%-WATER - 50 ML IVPB SCH ×3 (02:06→18:20)
[2022-06-11 10:44] LABS: BASO % 0.9 % (0-2.0); EOS % 5.2 % (0-4.5); HEMATOCRIT 38.1 % (32.4-45.2); HEMOGLOBIN 12.2 GM/dL (10.7-15.3); LYMPH % 46.3 % (8-40); MCH 25.9 pg (25.7-33.7); MCHC 32.1 g/dl (32.0-36.0); MEAN CELL VOLUME 80.7 fl (80-96); MEAN PLT VOLUME 8.9 fl (7.5-11.1); MONO % 7.1 % (3.8-10.2); NEUT % 40.5 % (42.8-82.8); PLATELET COUNT 250 10^3/uL (134-434); RBC 4.73 M/mm3 (3.60-5.2); RDW 16.5 % (11.6-15.6); WHITE BLOOD COUNT 4.7 K/mm3 (4.0-10.0)
[2022-06-11] MEDS: ENOXAPARIN NA (PORCINE) 40 MG/0.4 ML DISP.SYRIN SQ SCH (10:49)
[2022-06-11] MEDS: ASPIRIN 81 MG CHEWABLE TABLETS PO SCH (10:49)
[2022-06-11 11:13] LABS: BLOOD UREA NITROGEN 17.1 mg/dL (7-18)
[2022-06-11 11:15] LABS: ALBUMIN 3.3 g/dl (3.4-5.0); MAGNESIUM 2.5 mg/dL (1.8-2.4)
[2022-06-11 11:17] LABS: CREATININE 0.6 mg/dL (0.55-1.3); PHOSPHOROUS 3.1 mg/dL (2.5-4.9)
[2022-06-11 11:19] LABS: BILIRUBIN,TOTAL 0.4 mg/dL (0.2-1); TOT PROT 7.1 g/dl (6.4-8.2)
[2022-06-11 15:52] VITALS: BP 135/77; PULSE 70; TEMP 97.7
== END 2022-06-11 18:04 | disposition home or self-care (01) | DRG 383 ==
LOC: JER 09:47 → JERBED 12:26 → J5S 21:34
PROVIDERS: ADMIT Internal Medicine; ATTEND Internal Medicine
DX: L03.116 Cellulitis of left lower limb (principal); L97.828 Non-pressure chronic ulcer of other part of left lower leg with other specified severity; I87.2 Venous insufficiency (chronic) (peripheral); Z68.41 Body mass index [BMI] 40.0-44.9, adult; E66.9 Obesity, unspecified; L08.9 Local infection of the skin and subcutaneous tissue, unspecified; J45.909 Unspecified asthma, uncomplicated
CPT/HCPCS: 0241U-QW; 11042; 36415; 71046-TC-FY; 73590-TC-LT-FY; 73590-TC-RT-FY; 73610-TC-LT-FY; 73610-TC-RT-FY; 73718-TC-RT; 80048; 80053; 80061; 81003; 83036; 83735; 84100; 85025; 85027; 85610; 85651; 85730; 86140; 86850; 86900; 86901; 87040; 87070; 87086; 87186; 87205; 93005; 93010; 97116-GP; 97162-GP; 99285-25; A6196; G0008; Q2036

== ENCOUNTER 2022-10-01 08:44 | Inpatient (IN) | payer OTHER ==
[2022-09-30 12:08] VITALS: BMI 27.6
[2022-10-01] MEDS ORDERED: VANCOMYCIN 1,000 MG VIAL (RESTRICTED TO ID ONLY) ONE (12:33)
[2022-10-01] MEDS ORDERED: LIDOCAINE HCL/PF 2% SDV 5ML VIAL ONE (14:52)
[2022-10-01] MEDS ORDERED: PROPOFOL 40 ML ONE (14:52)
[2022-10-01] MEDS ORDERED: MIDAZOLAM HCL 2 MG/2 ML SINGLE DOSE VIAL ONE (14:52)
[2022-10-01] MEDS ORDERED: ceFAZolin SODIUM 1 GM VIAL ONE (15:15)
[2022-10-01] MEDS ORDERED: ceFAZolin SODIUM 1 GM VIAL IVPB ONE (15:18)
[2022-10-01] MEDS ORDERED: BUPIVACAINE HCL/PF 0.25% (2.5MG/ML) 10 ML VIAL ONE (15:55)
[2022-10-01] MEDS ORDERED: BUPIVACAINE HCL/PF 0.25% (2.5MG/ML) 10 ML VIAL IJ ONE (16:00)
[2022-10-01] MEDS ORDERED: MINERAL OIL 25 ML OIL TP ONE (16:00)
[2022-10-01] MEDS ORDERED: LIDOCAINE 1%/EPI 1:100000 (50 ML MULTI DOSE VIAL) NR ONE (16:30)
[2022-10-01] MEDS ORDERED: SODIUM CHLORIDE 0.9% P/F 10 ML VIAL IJ ONE (16:40)
[2022-10-01] MEDS ORDERED: BENZOIN/ALOE VERA/STORAX/TOLU 58 ML BOTTLE ONE (17:35)
[2022-10-01] MEDS ORDERED: ONDANSETRON 4 MG/2 ML VIAL ONE (18:05)
[2022-10-01] MEDS ORDERED: DEXAMETHASONE SOD PHOSPHATE 4 MG/1 ML VIAL ONE (18:06)
[2022-10-01] MEDS ORDERED: KETOROLAC TROMETHAMINE 30 MG/1 ML VIAL ONE (18:06)
[2022-10-01] MEDS ORDERED: ONDANSETRON 4 MG/2 ML VIAL IVPUSH PRN ×2 (18:19→18:43)
[2022-10-01] MEDS ORDERED: LACTATED RINGERS SOLUTION 1,000 ML IV SCH (18:30)
[2022-10-01] MEDS: LACTATED RINGERS SOLUTION 1,000 ML IV SCH (21:02)
[2022-10-02] MEDS: predniSONE 10 MG TABLET (UD) PO SCH (09:30)
[2022-10-02] MEDS: LACTATED RINGERS SOLUTION 1,000 ML IV SCH ×2 (09:30→21:33)
[2022-10-02] MEDS ORDERED: predniSONE 10 MG TABLET (UD) PO SCH (10:00)
[2022-10-02] MEDS: SENNOSIDES 8.6MG TABLET (FP) PO SCH (21:34)
[2022-10-02] MEDS: ACETAMINOPHEN 325 MG TABLET (FP) PO PRN (21:57)
[2022-10-03 09:28] LABS: BASO % 0.4 % (0-2.0); EOS % 2.4 % (0-4.5); HEMATOCRIT 28.2 % (32.4-45.2); HEMOGLOBIN 8.9 GM/dL (10.7-15.3); LYMPH % 43.7 % (8-40); MCH 23.9 pg (25.7-33.7); MCHC 31.4 g/dl (32.0-36.0); MEAN CELL VOLUME 76.2 fl (80-96); MEAN PLT VOLUME 8.3 fl (7.5-11.1); MONO % 8.2 % (3.8-10.2); NEUT % 45.3 % (42.8-82.8); PLATELET COUNT 266 10^3/uL (134-434); RBC 3.71 M/mm3 (3.60-5.2); RDW 18.5 % (11.6-15.6); WHITE BLOOD COUNT 5.7 K/mm3 (4.0-10.0)
[2022-10-03] MEDS: predniSONE 10 MG TABLET (UD) PO SCH (09:29)
[2022-10-03] MEDS: ACETAMINOPHEN 325 MG TABLET (FP) PO PRN ×2 (09:30→14:14)
[2022-10-03 09:54] LABS: CALCIUM 8.3 mg/dL (8.5-10.1)
[2022-10-03 09:56] LABS: ALBUMIN 2.6 g/dl (3.4-5.0); BLOOD UREA NITROGEN 12.9 mg/dL (7-18); MAGNESIUM 2.3 mg/dL (1.8-2.4)
[2022-10-03 09:58] LABS: PHOSPHOROUS 3.2 mg/dL (2.5-4.9); TOT PROT 6.1 g/dl (6.4-8.2)
[2022-10-03 10:13] LABS: CREATININE 0.5 mg/dL (0.55-1.3)
[2022-10-03 10:18] LABS: BILIRUBIN,TOTAL 0.2 mg/dL (0.2-1)
[2022-10-03] MEDS: LACTATED RINGERS SOLUTION 1,000 ML IV SCH (10:29)
[2022-10-03] MEDS: CEFAZOLIN 1 GM in DEXTROSE 5%-WATER - 50 ML IVPB SCH ×2 (13:36→17:11)
[2022-10-03] MEDS: SENNOSIDES 8.6MG TABLET (FP) PO SCH (21:51)
[2022-10-04] MEDS: CEFAZOLIN 1 GM in DEXTROSE 5%-WATER - 50 ML IVPB SCH ×3 (02:18→17:10)
[2022-10-04] MEDS: predniSONE 10 MG TABLET (UD) PO SCH (09:50)
[2022-10-04 09:56] LABS: BASO % 0.5 % (0-2.0); EOS % 3.8 % (0-4.5); HEMATOCRIT 31.4 % (32.4-45.2); HEMOGLOBIN 9.7 GM/dL (10.7-15.3); LYMPH % 38.8 % (8-40); MCH 23.6 pg (25.7-33.7); MEAN CELL VOLUME 76.3 fl (80-96); MEAN PLT VOLUME 8.1 fl (7.5-11.1); MONO % 9.4 % (3.8-10.2); NEUT % 47.5 % (42.8-82.8); PLATELET COUNT 302 10^3/uL (134-434); RBC 4.12 M/mm3 (3.60-5.2); RDW 18.3 % (11.6-15.6); WHITE BLOOD COUNT 6.4 K/mm3 (4.0-10.0)
[2022-10-04 10:36] LABS: ALBUMIN 2.9 g/dl (3.4-5.0); BLOOD UREA NITROGEN 13.1 mg/dL (7-18); CALCIUM 8.7 mg/dL (8.5-10.1)
[2022-10-04 10:38] LABS: CREATININE 0.7 mg/dL (0.55-1.3); MAGNESIUM 2.3 mg/dL (1.8-2.4)
[2022-10-04 10:39] LABS: TOT PROT 6.7 g/dl (6.4-8.2)
[2022-10-04 10:40] LABS: BILIRUBIN,TOTAL 0.2 mg/dL (0.2-1)
[2022-10-04] MEDS: ACETAMINOPHEN 325 MG TABLET (FP) PO PRN (12:48)
[2022-10-04] MEDS ORDERED: BACITRACIN ZINC 15 GM TUBE TOPICAL OINTMENT TP ONE (19:00)
[2022-10-04] MEDS: SENNOSIDES 8.6MG TABLET (FP) PO SCH (22:32)
[2022-10-05] MEDS: CEFAZOLIN 1 GM in DEXTROSE 5%-WATER - 50 ML IVPB SCH ×3 (01:16→18:30)
[2022-10-05 09:23] LABS: BASO % 0.7 % (0-2.0); EOS % 5.5 % (0-4.5); HEMATOCRIT 31.4 % (32.4-45.2); HEMOGLOBIN 9.9 GM/dL (10.7-15.3); LYMPH % 34.8 % (8-40); MCH 23.9 pg (25.7-33.7); MCHC 31.6 g/dl (32.0-36.0); MEAN CELL VOLUME 75.8 fl (80-96); MEAN PLT VOLUME 7.8 fl (7.5-11.1); MONO % 8.7 % (3.8-10.2); NEUT % 50.3 % (42.8-82.8); PLATELET COUNT 310 10^3/uL (134-434); RBC 4.14 M/mm3 (3.60-5.2); RDW 18.4 % (11.6-15.6); WHITE BLOOD COUNT 6.6 K/mm3 (4.0-10.0)
[2022-10-05 09:51] LABS: BLOOD UREA NITROGEN 12.8 mg/dL (7-18); CALCIUM 8.9 mg/dL (8.5-10.1); MAGNESIUM 2.3 mg/dL (1.8-2.4)
[2022-10-05 09:52] LABS: CREATININE 0.7 mg/dL (0.55-1.3)
[2022-10-05 09:54] LABS: BILIRUBIN,TOTAL 0.3 mg/dL (0.2-1); TOT PROT 6.8 g/dl (6.4-8.2)
[2022-10-05] MEDS: predniSONE 10 MG TABLET (UD) PO SCH (11:11)
[2022-10-05] MEDS: ACETAMINOPHEN 325 MG TABLET (FP) PO PRN (21:07)
[2022-10-05] MEDS: SENNOSIDES 8.6MG TABLET (FP) PO SCH (21:53)
[2022-10-06] MEDS: CEFAZOLIN 1 GM in DEXTROSE 5%-WATER - 50 ML IVPB SCH ×3 (03:00→17:27)
[2022-10-06 09:48] LABS: BASO % 0.7 % (0-2.0); EOS % 5.4 % (0-4.5); HEMATOCRIT 30.2 % (32.4-45.2); HEMOGLOBIN 9.6 GM/dL (10.7-15.3); LYMPH % 34.9 % (8-40); MCHC 31.7 g/dl (32.0-36.0); MEAN CELL VOLUME 75.6 fl (80-96); MEAN PLT VOLUME 8.1 fl (7.5-11.1); MONO % 7.7 % (3.8-10.2); NEUT % 51.3 % (42.8-82.8); PLATELET COUNT 329 10^3/uL (134-434); RBC 3.99 M/mm3 (3.60-5.2); RDW 18.7 % (11.6-15.6); WHITE BLOOD COUNT 7.3 K/mm3 (4.0-10.0)
[2022-10-06] MEDS: predniSONE 10 MG TABLET (UD) PO SCH (10:08)
[2022-10-06 10:34] LABS: ALBUMIN 2.8 g/dl (3.4-5.0); BLOOD UREA NITROGEN 13.4 mg/dL (7-18); CREATININE 0.7 mg/dL (0.55-1.3)
[2022-10-06 10:35] LABS: CALCIUM 8.6 mg/dL (8.5-10.1); TOT PROT 6.6 g/dl (6.4-8.2)
[2022-10-06 10:36] LABS: BILIRUBIN,TOTAL 0.2 mg/dL (0.2-1); MAGNESIUM 2.2 mg/dL (1.8-2.4)
[2022-10-06] MEDS: ACETAMINOPHEN 325 MG TABLET (FP) PO PRN (20:38)
[2022-10-06] MEDS: SENNOSIDES 8.6MG TABLET (FP) PO SCH (22:53)
[2022-10-07] MEDS: CEFAZOLIN 1 GM in DEXTROSE 5%-WATER - 50 ML IVPB SCH ×3 (02:57→17:26)
[2022-10-07] MEDS ORDERED: AMOX TR/POT CLAV 875MG/125MG TABLETS (FP) PO SCH (08:00)
[2022-10-07] MEDS: predniSONE 10 MG TABLET (UD) PO SCH (10:52)
[2022-10-07] MEDS: SULFAMETHOXAZOLE/TRIMETHOPRIM 800MG/160MG D.S. TABLET PO SCH (21:16)
[2022-10-07] MEDS: SENNOSIDES 8.6MG TABLET (FP) PO SCH (21:16)
[2022-10-08] MEDS: predniSONE 10 MG TABLET (UD) PO SCH (09:13)
[2022-10-08] MEDS: SULFAMETHOXAZOLE/TRIMETHOPRIM 800MG/160MG D.S. TABLET PO SCH (09:13)
[2022-10-08 16:08] VITALS: BP 125/75; PULSE 87; RESP 18; TEMP 98.5
== END 2022-10-08 18:12 | disposition home or self-care (01) | DRG 361 ==
LOC: SUATTDRO 08:44 → JASUSAT 08:44 → JASU-SURG 08:44 → J8W 20:17 → JASUSAT 10-02 16:36
PROVIDERS: ADMIT Internal Medicine; ATTEND Nurse Practitioner Family
PROC: 0HRKX74 Replacement of Right Lower Leg Skin with Autologous Tissue Substitute, Partial Thickness, External Approach (ICD-10-PCS; 2022-10-01)
PROC: 0KBS0ZZ Excision of Right Lower Leg Muscle, Open Approach (ICD-10-PCS; principal; 2022-10-01 14:00)
DX: L97.919 Non-pressure chronic ulcer of unspecified part of right lower leg with unspecified severity (principal); E66.01 Morbid (severe) obesity due to excess calories; Z68.41 Body mass index [BMI] 40.0-44.9, adult; L88 Pyoderma gangrenosum; L03.115 Cellulitis of right lower limb; I87.2 Venous insufficiency (chronic) (peripheral); J45.909 Unspecified asthma, uncomplicated
CPT/HCPCS: 36415; 80053; 80061; 82962; 83036; 83735; 84100; 84443; 85025; 86140; 87070; 87186; 87205; 88304-TC; 94760; 97116-GP; 97161-GP

== ENCOUNTER 2022-11-29 14:24 | Inpatient (IN) | payer OTHER ==
[2022-11-29 18:05] LABS: HEMATOCRIT 32.2 % (32.4-45.2); HEMOGLOBIN 10.3 GM/dL (10.7-15.3); MCH 23.9 pg (25.7-33.7); MEAN CELL VOLUME 74.9 fl (80-96); MEAN PLT VOLUME 7.8 fl (7.5-11.1); PLATELET COUNT 262 10^3/uL (134-434); RBC 4.29 M/mm3 (3.60-5.2); RDW 24.6 % (11.6-15.6); WHITE BLOOD COUNT 4.7 K/mm3 (4.0-10.0)
[2022-11-29 18:12] LABS: INR 1.03 (0.83-1.09)
[2022-11-29 18:15] LABS: ACTIVATED PTT 29.4 SECONDS (25.2-36.5)
[2022-11-29 18:31] LABS: ALBUMIN 3.6 g/dl (3.4-5.0); ANISOCYTOSIS 3+; BLOOD UREA NITROGEN 11.1 mg/dL (7-18); CALCIUM 9.1 mg/dL (8.5-10.1); MACROCYTOSIS 0; OVALOCYTE 2+; TEAR DROP CELLS 1+
[2022-11-29 18:34] LABS: CREATININE 0.5 mg/dL (0.55-1.3)
[2022-11-29 18:36] LABS: BILIRUBIN,TOTAL 0.4 mg/dL (0.2-1)
[2022-11-29 18:39] LABS: URINE APPEARANCE CLEAR; URINE BILIRUBIN NEGATIVE (NEGATIVE); URINE COLOR YELLOW; URINE GLUCOSE (UA) NEGATIVE (NEGATIVE); URINE KETONE TRACE (NEGATIVE); URINE LEUK ESTERASE NEGATIVE (NEGATIVE); URINE NITRITE NEGATIVE (NEGATIVE); URINE PROTEIN TRACE (NEGATIVE); URINE UROBILINOGEN 0.2 mg/dL (0.2-1.0)
[2022-11-29] MEDS ORDERED: PIPERACILLIN/TAZOB 4.5 GM 4.5 GM in DEXTROSE 5%-WATER 100 ML IVPB ONE (19:55)
[2022-11-29] MEDS ORDERED: VANCOMYCIN 1 GM in D5W (PRE-DOCKED) 1,000 MG/250 ML IVPB ONE (19:55)
[2022-11-29] MEDS ORDERED: PIPERACILLIN/TAZOB 4.5 GM 4.5 GM/100 ML BAG IVPB ONE (20:22)
[2022-11-29] MEDS ORDERED: VANCOMYCIN/WATER FOR INJ (PEG) 1,000 MG/200 ML BAG IVPB ONE (20:22)
[2022-11-30 00:35] LABS: RETICULOCYTES 1.79 % (0.5-1.5)
[2022-11-30] MEDS ORDERED: PIPERACILLIN/TAZOB 3.375 GM 3.375 GM in DEXTROSE 5%-WATER - 50 ML IVPB SCH (03:00)
[2022-11-30] MEDS: PIPERACILLIN/TAZOB 3.375 GM 3.375 GM in DEXTROSE 5%-WATER - 50 ML IVPB SCH ×3 (03:15→17:51)
[2022-11-30 03:54] VITALS: BMI 46.5
[2022-11-30] MEDS ORDERED: VANCOMYCIN PREMIX 1.75 GM 1,750 MG/350 ML PIGGYBACK IVPB SCH ×2 (09:00)
[2022-11-30] MEDS: CLOPIDOGREL BISULFATE 75 MG TABLET (FP) PO SCH (09:21)
[2022-11-30] MEDS: ENOXAPARIN NA (PORCINE) 40 MG/0.4 ML DISP.SYRIN SQ SCH ×3 (09:21→22:35)
[2022-11-30] MEDS: ASPIRIN 81 MG CHEWABLE TABLETS PO SCH (09:22)
[2022-11-30 10:13] LABS: BASO % 0.7 % (0-2.0); EOS % 11.7 % (0-4.5); HEMATOCRIT 29.8 % (32.4-45.2); HEMOGLOBIN 9.7 GM/dL (10.7-15.3); LYMPH % 19.4 % (8-40); MCH 24.2 pg (25.7-33.7); MCHC 32.6 g/dl (32.0-36.0); MEAN CELL VOLUME 74.1 fl (80-96); MEAN PLT VOLUME 8.6 fl (7.5-11.1); MONO % 12.6 % (3.8-10.2); NEUT % 55.6 % (42.8-82.8); PLATELET COUNT 255 10^3/uL (134-434); RBC 4.02 M/mm3 (3.60-5.2); RDW 25.1 % (11.6-15.6); WHITE BLOOD COUNT 3.7 K/mm3 (4.0-10.0)
[2022-11-30 10:35] LABS: ALBUMIN 3.3 g/dl (3.4-5.0); BLOOD UREA NITROGEN 8.9 mg/dL (7-18)
[2022-11-30 10:37] LABS: CALCIUM 8.2 mg/dL (8.5-10.1); MAGNESIUM 2.4 mg/dL (1.8-2.4)
[2022-11-30 10:39] LABS: BILIRUBIN,TOTAL 0.5 mg/dL (0.2-1); CREATININE 0.6 mg/dL (0.55-1.3); PHOSPHOROUS 3.9 mg/dL (2.5-4.9); TOT PROT 6.4 g/dl (6.4-8.2)
[2022-11-30] MEDS: ACETAMINOPHEN 325 MG TABLET (FP) PO SCH ×3 (11:02→22:32)
[2022-11-30] MEDS: CYCLOBENZAPRINE HCL 10 MG TABLET (FP) PO SCH ×2 (14:53→22:33)
[2022-11-30] MEDS ORDERED: VANCOMYCIN 1 GM in D5W (PRE-DOCKED) 1,000 MG/250 ML IVPB SCH (20:00)
[2022-11-30] MEDS ORDERED: GABAPENTIN 300 MG CAPSULE PO SCH (22:00)
[2022-11-30] MEDS: VANCOMYCIN PREMIX 1.75 GM 1,750 MG/350 ML PIGGYBACK IVPB SCH (22:34)
[2022-12-01] MEDS: PIPERACILLIN/TAZOB 3.375 GM 3.375 GM in DEXTROSE 5%-WATER - 50 ML IVPB SCH ×3 (03:02→17:26)
[2022-12-01] MEDS: CYCLOBENZAPRINE HCL 10 MG TABLET (FP) PO SCH ×2 (07:58→14:17)
[2022-12-01] MEDS: ACETAMINOPHEN 325 MG TABLET (FP) PO SCH ×4 (07:58→22:56)
[2022-12-01 09:32] LABS: HEMATOCRIT 30.9 % (32.4-45.2); HEMOGLOBIN 10.1 GM/dL (10.7-15.3); MCH 24.2 pg (25.7-33.7); MCHC 32.7 g/dl (32.0-36.0); MEAN PLT VOLUME 8.5 fl (7.5-11.1); PLATELET COUNT 266 10^3/uL (134-434); RBC 4.18 M/mm3 (3.60-5.2); RDW 24.7 % (11.6-15.6); WHITE BLOOD COUNT 2.9 K/mm3 (4.0-10.0)
[2022-12-01 09:49] LABS: CALCIUM 8.5 mg/dL (8.5-10.1)
[2022-12-01 09:50] LABS: ALBUMIN 3.1 g/dl (3.4-5.0); BLOOD UREA NITROGEN 12.2 mg/dL (7-18)
[2022-12-01 09:53] LABS: CREATININE 0.6 mg/dL (0.55-1.3)
[2022-12-01 09:55] LABS: BILIRUBIN,TOTAL 0.4 mg/dL (0.2-1); TOT PROT 6.1 g/dl (6.4-8.2)
[2022-12-01] MEDS: ASPIRIN 81 MG CHEWABLE TABLETS PO SCH (10:14)
[2022-12-01] MEDS: CLOPIDOGREL BISULFATE 75 MG TABLET (FP) PO SCH (10:14)
[2022-12-01] MEDS: ENOXAPARIN NA (PORCINE) 40 MG/0.4 ML DISP.SYRIN SQ SCH (10:14)
[2022-12-01] MEDS: VANCOMYCIN PREMIX 1.75 GM 1,750 MG/350 ML PIGGYBACK IVPB SCH (11:09)
[2022-12-01] MEDS: KETOROLAC TROMETHAMINE 15 MG/ML VIAL IVPUSH SCH ×2 (16:52→22:58)
[2022-12-01] MEDS: CYCLOBENZAPRINE HCL 5 MG TABLET PO SCH (22:56)
[2022-12-01] MEDS: GABAPENTIN 300 MG CAPSULE PO SCH (23:03)
[2022-12-02] MEDS: PIPERACILLIN/TAZOB 3.375 GM 3.375 GM in DEXTROSE 5%-WATER - 50 ML IVPB SCH ×3 (02:00→17:15)
[2022-12-02] MEDS: CYCLOBENZAPRINE HCL 5 MG TABLET PO SCH ×3 (05:34→21:31)
[2022-12-02] MEDS: GABAPENTIN 300 MG CAPSULE PO SCH ×3 (05:34→21:31)
[2022-12-02] MEDS: ACETAMINOPHEN 325 MG TABLET (FP) PO SCH ×4 (05:34→22:45)
[2022-12-02] MEDS: KETOROLAC TROMETHAMINE 15 MG/ML VIAL IVPUSH SCH ×4 (05:35→21:31)
[2022-12-02 08:38] LABS: BASO % 1.2 % (0-2.0); EOS % 11.9 % (0-4.5); HEMATOCRIT 30.9 % (32.4-45.2); MCH 24.2 pg (25.7-33.7); MCHC 32.4 g/dl (32.0-36.0); MEAN CELL VOLUME 74.5 fl (80-96); MEAN PLT VOLUME 7.9 fl (7.5-11.1); MONO % 15.1 % (3.8-10.2); NEUT % 28.8 % (42.8-82.8); PLATELET COUNT 248 10^3/uL (134-434); RBC 4.15 M/mm3 (3.60-5.2); RDW 24.8 % (11.6-15.6); WHITE BLOOD COUNT 3.1 K/mm3 (4.0-10.0)
[2022-12-02] MEDS: ASPIRIN 81 MG CHEWABLE TABLETS PO SCH (09:22)
[2022-12-02] MEDS: CLOPIDOGREL BISULFATE 75 MG TABLET (FP) PO SCH (09:22)
[2022-12-02] MEDS: ENOXAPARIN NA (PORCINE) 40 MG/0.4 ML DISP.SYRIN SQ SCH ×2 (09:22→21:31)
[2022-12-02 17:10] LABS: HIV INTERPRETATION NEGATIVE (NEGATIVE)
[2022-12-03] MEDS ORDERED: PIPERACILLIN/TAZOBACTAM 3.375 GM VIAL IVPB ONE (01:58)
[2022-12-03] MEDS: PIPERACILLIN/TAZOB 3.375 GM 3.375 GM in DEXTROSE 5%-WATER - 50 ML IVPB SCH ×3 (02:06→17:25)
[2022-12-03] MEDS: KETOROLAC TROMETHAMINE 15 MG/ML VIAL IVPUSH SCH ×4 (02:07→21:55)
[2022-12-03] MEDS: CYCLOBENZAPRINE HCL 5 MG TABLET PO SCH ×3 (05:23→22:08)
[2022-12-03] MEDS: ACETAMINOPHEN 325 MG TABLET (FP) PO SCH ×4 (05:24→21:50)
[2022-12-03] MEDS: GABAPENTIN 300 MG CAPSULE PO SCH ×3 (05:24→22:09)
[2022-12-03 10:08] LABS: BASO % 1.1 % (0-2.0); EOS % 12.1 % (0-4.5); HEMOGLOBIN 10.3 GM/dL (10.7-15.3); LYMPH % 44.5 % (8-40); MCHC 32.2 g/dl (32.0-36.0); MEAN CELL VOLUME 74.6 fl (80-96); MEAN PLT VOLUME 8.7 fl (7.5-11.1); MONO % 11.4 % (3.8-10.2); NEUT % 30.9 % (42.8-82.8); PLATELET COUNT 273 10^3/uL (134-434); RBC 4.29 M/mm3 (3.60-5.2); RDW 24.5 % (11.6-15.6); WHITE BLOOD COUNT 3.2 K/mm3 (4.0-10.0)
[2022-12-03] MEDS: CLOPIDOGREL BISULFATE 75 MG TABLET (FP) PO SCH (10:31)
[2022-12-03] MEDS: ASPIRIN 81 MG CHEWABLE TABLETS PO SCH (10:31)
[2022-12-03] MEDS: ENOXAPARIN NA (PORCINE) 40 MG/0.4 ML DISP.SYRIN SQ SCH (10:32)
[2022-12-03 11:48] LABS: ANISOCYTOSIS 2+; MACROCYTOSIS 0; OVALOCYTE 1+
[2022-12-04] MEDS ORDERED: PIPERACILLIN/TAZOBACTAM 3.375 GM VIAL IVPB ONE (01:25)
[2022-12-04] MEDS: PIPERACILLIN/TAZOB 3.375 GM 3.375 GM in DEXTROSE 5%-WATER - 50 ML IVPB SCH ×3 (01:42→17:35)
[2022-12-04] MEDS: CYCLOBENZAPRINE HCL 5 MG TABLET PO SCH ×3 (05:11→21:20)
[2022-12-04] MEDS: GABAPENTIN 300 MG CAPSULE PO SCH ×3 (05:12→21:20)
[2022-12-04] MEDS: KETOROLAC TROMETHAMINE 15 MG/ML VIAL IVPUSH SCH ×3 (06:23→15:24)
[2022-12-04] MEDS: ACETAMINOPHEN 325 MG TABLET (FP) PO SCH ×4 (06:26→23:06)
[2022-12-04 08:49] LABS: BASO % 1.1 % (0-2.0); EOS % 10.7 % (0-4.5); HEMATOCRIT 32.4 % (32.4-45.2); HEMOGLOBIN 10.5 GM/dL (10.7-15.3); LYMPH % 44.7 % (8-40); MCH 24.1 pg (25.7-33.7); MCHC 32.4 g/dl (32.0-36.0); MEAN CELL VOLUME 74.5 fl (80-96); MEAN PLT VOLUME 8.1 fl (7.5-11.1); MONO % 14.5 % (3.8-10.2); PLATELET COUNT 248 10^3/uL (134-434); RBC 4.35 M/mm3 (3.60-5.2); RDW 24.8 % (11.6-15.6); WHITE BLOOD COUNT 3.3 K/mm3 (4.0-10.0)
[2022-12-04 08:50] LABS: INR 1.04 (0.83-1.09); PROTHROMBIN TIME (PATIENT) 12.1 SEC (9.7-13.0)
[2022-12-04 08:52] LABS: ACTIVATED PTT 32.7 SECONDS (25.2-36.5)
[2022-12-04] MEDS ORDERED: MIDAZOLAM HCL 2 MG/2 ML SINGLE DOSE VIAL ONE (12:36)
[2022-12-04] MEDS ORDERED: BUPIVACAINE HCL/PF 0.25% (2.5MG/ML) 10 ML VIAL ONE (12:51)
[2022-12-04] MEDS ORDERED: CLOTRIMAZOLE 1% CREAM TP ONE ×3 (13:15→14:17)
[2022-12-04] MEDS ORDERED: LIDOCAINE 1%/EPI 1:100000 (20 ML MULTI DOSE VIAL) IJ ONE (13:41)
[2022-12-04] MEDS ORDERED: BUPIVACAINE HCL/PF 0.25% (2.5MG/ML) 10 ML VIAL IJ ONE (13:42)
[2022-12-04] MEDS ORDERED: ENOXAPARIN NA (PORCINE) 40 MG/0.4 ML DISP.SYRIN SQ SCH (22:00)
[2022-12-05] MEDS: PIPERACILLIN/TAZOB 3.375 GM 3.375 GM in DEXTROSE 5%-WATER - 50 ML IVPB SCH ×3 (02:04→17:24)
[2022-12-05] MEDS: ACETAMINOPHEN 325 MG TABLET (FP) PO SCH ×4 (04:05→21:31)
[2022-12-05] MEDS: CYCLOBENZAPRINE HCL 5 MG TABLET PO SCH ×3 (05:10→21:32)
[2022-12-05] MEDS: GABAPENTIN 300 MG CAPSULE PO SCH ×3 (05:27→21:32)
[2022-12-05] MEDS ORDERED: CLOPIDOGREL BISULFATE 75 MG TABLET (FP) PO SCH (10:00)
[2022-12-05] MEDS ORDERED: ASPIRIN 81 MG CHEWABLE TABLETS PO SCH (10:00)
[2022-12-05 10:28] LABS: BASO % 0.6 % (0-2.0); EOS % 7.2 % (0-4.5); HEMATOCRIT 29.6 % (32.4-45.2); HEMOGLOBIN 9.7 GM/dL (10.7-15.3); LYMPH % 25.4 % (8-40); MCH 24.1 pg (25.7-33.7); MCHC 32.7 g/dl (32.0-36.0); MEAN CELL VOLUME 73.8 fl (80-96); MEAN PLT VOLUME 8.8 fl (7.5-11.1); MONO % 8.6 % (3.8-10.2); NEUT % 58.2 % (42.8-82.8); PLATELET COUNT 241 10^3/uL (134-434); RBC 4.01 M/mm3 (3.60-5.2); RDW 23.9 % (11.6-15.6); WHITE BLOOD COUNT 5.1 K/mm3 (4.0-10.0)
[2022-12-06] MEDS: PIPERACILLIN/TAZOB 3.375 GM 3.375 GM in DEXTROSE 5%-WATER - 50 ML IVPB SCH ×2 (02:56→11:31)
[2022-12-06] MEDS: ACETAMINOPHEN 325 MG TABLET (FP) PO SCH ×3 (05:07→21:52)
[2022-12-06] MEDS: GABAPENTIN 300 MG CAPSULE PO SCH ×2 (05:07→21:52)
[2022-12-06] MEDS: CYCLOBENZAPRINE HCL 5 MG TABLET PO SCH ×2 (05:07→21:51)
[2022-12-06 08:56] LABS: CALCIUM 8.5 mg/dL (8.5-10.1)
[2022-12-06 08:57] LABS: BASO % 0.9 % (0-2.0); EOS % 4.4 % (0-4.5); HEMATOCRIT 27.9 % (32.4-45.2); HEMOGLOBIN 9.1 GM/dL (10.7-15.3); MCH 24.3 pg (25.7-33.7); MCHC 32.5 g/dl (32.0-36.0); MEAN CELL VOLUME 74.9 fl (80-96); MONO % 12.6 % (3.8-10.2); NEUT % 53.1 % (42.8-82.8); PLATELET COUNT 210 10^3/uL (134-434); RBC 3.73 M/mm3 (3.60-5.2); RDW 24.2 % (11.6-15.6); WHITE BLOOD COUNT 6.9 K/mm3 (4.0-10.0)
[2022-12-06 09:00] LABS: CREATININE 0.6 mg/dL (0.55-1.3)
[2022-12-06] MEDS ORDERED: HEPARIN NA (PORCINE) 5,000 UNITS/ML 1ML VIAL SQ SCH (14:00)
[2022-12-06] MEDS ORDERED: PROPOFOL 20 ML ONE (16:33)
[2022-12-06] MEDS ORDERED: MIDAZOLAM HCL 2 MG/2 ML SINGLE DOSE VIAL ONE ×2 (16:34→17:18)
[2022-12-06] MEDS ORDERED: ceFAZolin SODIUM 1 GM VIAL IVPB ONE (17:05)
[2022-12-06] MEDS ORDERED: DEXAMETHASONE SOD PHOSPHATE 4 MG/1 ML VIAL ONE (17:07)
[2022-12-06] MEDS ORDERED: ceFAZolin SODIUM 1 GM VIAL ONE (17:07)
[2022-12-06] MEDS ORDERED: ONDANSETRON 4 MG/2 ML VIAL ONE (17:21)
[2022-12-06] MEDS ORDERED: ONDANSETRON 4 MG/2 ML VIAL IVPUSH PRN (18:37)
[2022-12-07] MEDS: PIPERACILLIN/TAZOB 3.375 GM 3.375 GM in DEXTROSE 5%-WATER - 50 ML IVPB SCH ×3 (02:57→17:32)
[2022-12-07] MEDS: GABAPENTIN 300 MG CAPSULE PO SCH ×3 (06:13→21:57)
[2022-12-07] MEDS: CYCLOBENZAPRINE HCL 5 MG TABLET PO SCH ×3 (06:13→21:57)
[2022-12-07] MEDS: ACETAMINOPHEN 325 MG TABLET (FP) PO SCH ×3 (06:13→17:33)
[2022-12-07 08:48] LABS: BASO % 0.8 % (0-2.0); EOS % 0.1 % (0-4.5); HEMATOCRIT 28.6 % (32.4-45.2); HEMOGLOBIN 9.3 GM/dL (10.7-15.3); LYMPH % 25.8 % (8-40); MCHC 32.4 g/dl (32.0-36.0); MEAN CELL VOLUME 74.2 fl (80-96); MEAN PLT VOLUME 8.1 fl (7.5-11.1); MONO % 6.5 % (3.8-10.2); NEUT % 66.8 % (42.8-82.8); PLATELET COUNT 237 10^3/uL (134-434); RBC 3.85 M/mm3 (3.60-5.2); RDW 24.6 % (11.6-15.6); WHITE BLOOD COUNT 5.7 K/mm3 (4.0-10.0)
[2022-12-07 10:26] LABS: ANISOCYTOSIS 2+; MACROCYTOSIS 0; OVALOCYTE 1+
[2022-12-07] MEDS: LACTATED RINGERS SOLUTION 1,000 ML IV SCH (17:36)
[2022-12-08] MEDS: ACETAMINOPHEN 325 MG TABLET (FP) PO SCH ×5 (00:52→23:17)
[2022-12-08] MEDS: PIPERACILLIN/TAZOB 3.375 GM 3.375 GM in DEXTROSE 5%-WATER - 50 ML IVPB SCH ×3 (01:06→17:23)
[2022-12-08] MEDS: LACTATED RINGERS SOLUTION 1,000 ML IV SCH (05:00)
[2022-12-08] MEDS: GABAPENTIN 300 MG CAPSULE PO SCH ×3 (06:01→21:24)
[2022-12-08] MEDS: CYCLOBENZAPRINE HCL 5 MG TABLET PO SCH ×3 (06:01→21:24)
[2022-12-08 08:52] LABS: EOS % 6.2 % (0-4.5); HEMATOCRIT 27.9 % (32.4-45.2); HEMOGLOBIN 8.9 GM/dL (10.7-15.3); LYMPH % 53.7 % (8-40); MCHC 32.1 g/dl (32.0-36.0); MEAN CELL VOLUME 74.9 fl (80-96); MEAN PLT VOLUME 8.3 fl (7.5-11.1); MONO % 9.5 % (3.8-10.2); NEUT % 29.6 % (42.8-82.8); PLATELET COUNT 246 10^3/uL (134-434); RBC 3.73 M/mm3 (3.60-5.2); RDW 24.6 % (11.6-15.6); WHITE BLOOD COUNT 4.5 K/mm3 (4.0-10.0)
[2022-12-08 09:08] LABS: CALCIUM 8.4 mg/dL (8.5-10.1)
[2022-12-08 09:09] LABS: BLOOD UREA NITROGEN 15.9 mg/dL (7-18)
[2022-12-08 09:12] LABS: CREATININE 0.7 mg/dL (0.55-1.3)
[2022-12-08] MEDS ORDERED: PIPERACILLIN/TAZOBACTAM 3.375 GM VIAL IVPB ONE (10:30)
[2022-12-09] MEDS ORDERED: PIPERACILLIN/TAZOBACTAM 3.375 GM VIAL IVPB ONE (01:31)
[2022-12-09] MEDS: PIPERACILLIN/TAZOB 3.375 GM 3.375 GM in DEXTROSE 5%-WATER - 50 ML IVPB SCH ×3 (01:41→17:53)
[2022-12-09] MEDS: ACETAMINOPHEN 325 MG TABLET (FP) PO SCH ×4 (05:31→23:32)
[2022-12-09] MEDS: GABAPENTIN 300 MG CAPSULE PO SCH ×3 (05:32→21:23)
[2022-12-09] MEDS: CYCLOBENZAPRINE HCL 5 MG TABLET PO SCH ×3 (05:32→21:23)
[2022-12-09 08:39] LABS: BASO % 1.1 % (0-2.0); EOS % 8.1 % (0-4.5); HEMATOCRIT 27.5 % (32.4-45.2); HEMOGLOBIN 8.9 GM/dL (10.7-15.3); LYMPH % 46.2 % (8-40); MCH 24.1 pg (25.7-33.7); MCHC 32.4 g/dl (32.0-36.0); MEAN CELL VOLUME 74.5 fl (80-96); MEAN PLT VOLUME 8.2 fl (7.5-11.1); MONO % 9.4 % (3.8-10.2); NEUT % 35.2 % (42.8-82.8); PLATELET COUNT 252 10^3/uL (134-434); RBC 3.69 M/mm3 (3.60-5.2); RDW 24.2 % (11.6-15.6); WHITE BLOOD COUNT 4.9 K/mm3 (4.0-10.0)
[2022-12-09] MEDS: HEPARIN NA (PORCINE) 5,000 UNITS/ML 1ML VIAL SQ SCH (21:24)
[2022-12-10] MEDS: PIPERACILLIN/TAZOB 3.375 GM 3.375 GM in DEXTROSE 5%-WATER - 50 ML IVPB SCH ×3 (01:32→17:28)
[2022-12-10] MEDS: CYCLOBENZAPRINE HCL 5 MG TABLET PO SCH ×3 (05:29→21:19)
[2022-12-10] MEDS: ACETAMINOPHEN 325 MG TABLET (FP) PO SCH ×2 (05:29→13:43)
[2022-12-10] MEDS: GABAPENTIN 300 MG CAPSULE PO SCH ×3 (05:29→21:19)
[2022-12-10] MEDS: HEPARIN NA (PORCINE) 5,000 UNITS/ML 1ML VIAL SQ SCH ×3 (05:30→21:19)
[2022-12-10] MEDS: CLOPIDOGREL BISULFATE 75 MG TABLET (FP) PO SCH (09:28)
[2022-12-10] MEDS: ASPIRIN 81 MG CHEWABLE TABLETS PO SCH (09:28)
[2022-12-10 09:43] LABS: HEMATOCRIT 27.8 % (32.4-45.2); HEMOGLOBIN 9.1 GM/dL (10.7-15.3); MCH 24.4 pg (25.7-33.7); MCHC 32.8 g/dl (32.0-36.0); MEAN CELL VOLUME 74.2 fl (80-96); PLATELET COUNT 306 10^3/uL (134-434); RBC 3.75 M/mm3 (3.60-5.2); RDW 23.8 % (11.6-15.6); WHITE BLOOD COUNT 4.8 K/mm3 (4.0-10.0)
[2022-12-10 10:01] LABS: CALCIUM 8.7 mg/dL (8.5-10.1); MAGNESIUM 2.3 mg/dL (1.8-2.4)
[2022-12-10 10:02] LABS: BLOOD UREA NITROGEN 15.5 mg/dL (7-18)
[2022-12-10 10:04] LABS: CREATININE 0.6 mg/dL (0.55-1.3)
[2022-12-10 10:05] LABS: PHOSPHOROUS 4.6 mg/dL (2.5-4.9)
[2022-12-11] MEDS: ACETAMINOPHEN 325 MG TABLET (FP) PO SCH ×4 (03:10→17:22)
[2022-12-11] MEDS: PIPERACILLIN/TAZOB 3.375 GM 3.375 GM in DEXTROSE 5%-WATER - 50 ML IVPB SCH ×2 (03:11→09:26)
[2022-12-11] MEDS: HEPARIN NA (PORCINE) 5,000 UNITS/ML 1ML VIAL SQ SCH ×3 (05:38→23:00)
[2022-12-11] MEDS: CYCLOBENZAPRINE HCL 5 MG TABLET PO SCH ×3 (05:38→23:00)
[2022-12-11] MEDS: GABAPENTIN 300 MG CAPSULE PO SCH ×3 (05:38→23:00)
[2022-12-11] MEDS: ASPIRIN 81 MG CHEWABLE TABLETS PO SCH (09:26)
[2022-12-11] MEDS: CLOPIDOGREL BISULFATE 75 MG TABLET (FP) PO SCH (09:26)
[2022-12-11 09:27] LABS: HEMATOCRIT 28.6 % (32.4-45.2); HEMOGLOBIN 9.1 GM/dL (10.7-15.3); MCH 23.9 pg (25.7-33.7); MCHC 31.9 g/dl (32.0-36.0); MEAN CELL VOLUME 74.7 fl (80-96); MEAN PLT VOLUME 7.7 fl (7.5-11.1); PLATELET COUNT 310 10^3/uL (134-434); RBC 3.83 M/mm3 (3.60-5.2); RDW 23.6 % (11.6-15.6); WHITE BLOOD COUNT 4.8 K/mm3 (4.0-10.0)
[2022-12-11 09:46] LABS: BLOOD UREA NITROGEN 14.7 mg/dL (7-18)
[2022-12-11 09:48] LABS: CALCIUM 8.7 mg/dL (8.5-10.1)
[2022-12-11 09:49] LABS: CREATININE 0.6 mg/dL (0.55-1.3); MAGNESIUM 2.2 mg/dL (1.8-2.4); PHOSPHOROUS 4.6 mg/dL (2.5-4.9)
[2022-12-11] MEDS: AMOX TR/POT CLAV 875MG/125MG TABLETS (FP) PO SCH (17:22)
[2022-12-11 21:08] VITALS: RESP 18
[2022-12-12] MEDS: ACETAMINOPHEN 325 MG TABLET (FP) PO SCH ×4 (00:02→17:09)
[2022-12-12] MEDS: CYCLOBENZAPRINE HCL 5 MG TABLET PO SCH ×3 (05:12→21:25)
[2022-12-12] MEDS: HEPARIN NA (PORCINE) 5,000 UNITS/ML 1ML VIAL SQ SCH ×3 (05:12→21:27)
[2022-12-12] MEDS: GABAPENTIN 300 MG CAPSULE PO SCH ×3 (05:12→21:25)
[2022-12-12] MEDS: AMOX TR/POT CLAV 875MG/125MG TABLETS (FP) PO SCH ×2 (08:30→17:09)
[2022-12-12 10:03] LABS: HEMATOCRIT 26.4 % (32.4-45.2); HEMOGLOBIN 8.7 GM/dL (10.7-15.3); MCH 24.5 pg (25.7-33.7); MCHC 33.1 g/dl (32.0-36.0); MEAN CELL VOLUME 73.9 fl (80-96); MEAN PLT VOLUME 8.5 fl (7.5-11.1); PLATELET COUNT 312 10^3/uL (134-434); RBC 3.57 M/mm3 (3.60-5.2); RDW 23.4 % (11.6-15.6); WHITE BLOOD COUNT 4.8 K/mm3 (4.0-10.0)
[2022-12-12 10:19] LABS: CALCIUM 8.3 mg/dL (8.5-10.1)
[2022-12-12 10:20] LABS: BLOOD UREA NITROGEN 13.5 mg/dL (7-18); MAGNESIUM 2.2 mg/dL (1.8-2.4)
[2022-12-12 10:22] LABS: CREATININE 0.6 mg/dL (0.55-1.3); PHOSPHOROUS 3.7 mg/dL (2.5-4.9)
[2022-12-12] MEDS: CLOPIDOGREL BISULFATE 75 MG TABLET (FP) PO SCH (10:32)
[2022-12-12] MEDS: levoFLOXacin 750 MG TABLET PO SCH (10:32)
[2022-12-12] MEDS: ASPIRIN 81 MG CHEWABLE TABLETS PO SCH (10:32)
[2022-12-13] MEDS: CYCLOBENZAPRINE HCL 5 MG TABLET PO SCH ×3 (05:57→22:40)
[2022-12-13] MEDS: ACETAMINOPHEN 325 MG TABLET (FP) PO SCH ×4 (05:57→17:15)
[2022-12-13] MEDS: GABAPENTIN 300 MG CAPSULE PO SCH ×3 (05:58→22:40)
[2022-12-13] MEDS: HEPARIN NA (PORCINE) 5,000 UNITS/ML 1ML VIAL SQ SCH ×3 (06:00→22:39)
[2022-12-13 09:16] LABS: HEMATOCRIT 27.6 % (32.4-45.2); HEMOGLOBIN 8.9 GM/dL (10.7-15.3); MCHC 32.1 g/dl (32.0-36.0); MEAN CELL VOLUME 74.6 fl (80-96); MEAN PLT VOLUME 7.5 fl (7.5-11.1); PLATELET COUNT 299 10^3/uL (134-434); RBC 3.69 M/mm3 (3.60-5.2); RDW 23.3 % (11.6-15.6); WHITE BLOOD COUNT 4.8 K/mm3 (4.0-10.0)
[2022-12-13] MEDS: CLOPIDOGREL BISULFATE 75 MG TABLET (FP) PO SCH (09:19)
[2022-12-13] MEDS: levoFLOXacin 750 MG TABLET PO SCH (09:19)
[2022-12-13] MEDS: AMOX TR/POT CLAV 875MG/125MG TABLETS (FP) PO SCH ×2 (09:19→17:15)
[2022-12-13] MEDS: ASPIRIN 81 MG CHEWABLE TABLETS PO SCH (09:19)
[2022-12-13 09:52] LABS: CALCIUM 8.5 mg/dL (8.5-10.1)
[2022-12-13 09:53] LABS: BLOOD UREA NITROGEN 14.6 mg/dL (7-18); MAGNESIUM 2.1 mg/dL (1.8-2.4)
[2022-12-13 09:56] LABS: CREATININE 0.6 mg/dL (0.55-1.3)
[2022-12-14] MEDS: ACETAMINOPHEN 325 MG TABLET (FP) PO SCH ×4 (00:54→18:18)
[2022-12-14] MEDS: CYCLOBENZAPRINE HCL 5 MG TABLET PO SCH ×3 (05:44→22:10)
[2022-12-14] MEDS: GABAPENTIN 300 MG CAPSULE PO SCH ×3 (05:44→22:10)
[2022-12-14] MEDS: HEPARIN NA (PORCINE) 5,000 UNITS/ML 1ML VIAL SQ SCH ×3 (05:45→22:10)
[2022-12-14] MEDS: AMOX TR/POT CLAV 875MG/125MG TABLETS (FP) PO SCH ×2 (08:15→18:18)
[2022-12-14] MEDS: ASPIRIN 81 MG CHEWABLE TABLETS PO SCH (10:49)
[2022-12-14] MEDS: levoFLOXacin 750 MG TABLET PO SCH (10:50)
[2022-12-14] MEDS: CLOPIDOGREL BISULFATE 75 MG TABLET (FP) PO SCH (10:50)
[2022-12-15] MEDS: ACETAMINOPHEN 325 MG TABLET (FP) PO SCH ×3 (02:45→12:25)
[2022-12-15] MEDS: CYCLOBENZAPRINE HCL 5 MG TABLET PO SCH ×2 (05:11→13:52)
[2022-12-15] MEDS: HEPARIN NA (PORCINE) 5,000 UNITS/ML 1ML VIAL SQ SCH ×2 (05:11→13:52)
[2022-12-15] MEDS: GABAPENTIN 300 MG CAPSULE PO SCH ×2 (05:11→13:52)
[2022-12-15] MEDS: AMOX TR/POT CLAV 875MG/125MG TABLETS (FP) PO SCH ×2 (08:42→16:56)
[2022-12-15 08:49] VITALS: BP 110/56; PULSE 86; TEMP 98.5
[2022-12-15] MEDS: levoFLOXacin 750 MG TABLET PO SCH (10:14)
[2022-12-15] MEDS: ASPIRIN 81 MG CHEWABLE TABLETS PO SCH (10:14)
[2022-12-15] MEDS: CLOPIDOGREL BISULFATE 75 MG TABLET (FP) PO SCH (10:14)
== END 2022-12-15 17:20 | disposition home or self-care (01) | DRG 791 ==
LOC: JER 14:24 → JERBED 23:42 → J6S 11-30 01:39
PROVIDERS: ADMIT Internal Medicine; ATTEND Internal Medicine
PROC: 0JBN0ZZ Excision of Right Lower Leg Subcutaneous Tissue and Fascia, Open Approach (ICD-10-PCS; 2022-12-06)
PROC: 0HRKX74 Replacement of Right Lower Leg Skin with Autologous Tissue Substitute, Partial Thickness, External Approach (ICD-10-PCS; principal; 2022-12-06 16:00)
DX: T86.822 Skin graft (allograft) (autograft) infection (principal); L03.115 Cellulitis of right lower limb; L88 Pyoderma gangrenosum; I82.431 Acute embolism and thrombosis of right popliteal vein; Z68.41 Body mass index [BMI] 40.0-44.9, adult; G93.40 Encephalopathy, unspecified; E66.01 Morbid (severe) obesity due to excess calories; D64.9 Anemia, unspecified; I10 Essential (primary) hypertension; E78.5 Hyperlipidemia, unspecified; Y83.9 Surgical procedure, unspecified as the cause of abnormal reaction of the patient, or of later complication, without mention of misadventure at the time of the procedure
CPT/HCPCS: 0241U-QW; 36415; 72131-TC; 73590-TC-RT-FY; 73701-TC-RT; 80048; 80053; 81003; 82607; 82728; 82746; 83036; 83540; 83550; 83735; 84100; 84132; 84443; 84466; 84703; 85025; 85027; 85045; 85610; 85730; 86704; 86803; 86850; 86900; 86901; 87040; 87070; 87075; 87081; 87086; 87102; 87186; 87205; 87210; 87340; 87389; 87517; 88304-TC; 93005; 93010; 93971-TC; 94760; 99285-25; G0463-25; J1644; J3370; Q9967

== ENCOUNTER 2022-12-31 13:37 | Inpatient (IN) | payer OTHER ==
[2022-12-31 15:58] LABS: BASO % 0.9 % (0-2.0); EOS % 5.1 % (0-4.5); HEMATOCRIT 29.1 % (32.4-45.2); HEMOGLOBIN 9.3 GM/dL (10.7-15.3); LYMPH % 38.5 % (8-40); MCH 24.1 pg (25.7-33.7); MCHC 32.1 g/dl (32.0-36.0); MEAN CELL VOLUME 74.9 fl (80-96); MEAN PLT VOLUME 8.5 fl (7.5-11.1); MONO % 9.7 % (3.8-10.2); NEUT % 45.8 % (42.8-82.8); PLATELET COUNT 266 10^3/uL (134-434); RBC 3.88 M/mm3 (3.60-5.2); RDW 23.4 % (11.6-15.6)
[2022-12-31 16:02] LABS: EPI CELLS >36 /uL (0-25.1); HYALINE CASTS 14 /uL (0-3.1); URINE APPEARANCE CLEAR; URINE BACTERIA 29 /uL (0-1359); URINE BILIRUBIN NEGATIVE (NEGATIVE); URINE COLOR YELLOW; URINE GLUCOSE (UA) NEGATIVE (NEGATIVE); URINE KETONE NEGATIVE (NEGATIVE); URINE LEUK ESTERASE NEGATIVE (NEGATIVE); URINE NITRITE NEGATIVE (NEGATIVE); URINE PROTEIN 4+ (NEGATIVE); URINE RBC 193 /uL (0-23.9); URINE UROBILINOGEN 0.2 mg/dL (0.2-1.0); URINE WBC 32 /uL (0-25.8)
[2022-12-31 16:12] LABS: POTASSIUM 5.1 mmol/L (3.5-5.1)
[2022-12-31 16:14] LABS: ALBUMIN 1.4 g/dl (3.4-5.0); CALCIUM 8.2 mg/dL (8.5-10.1)
[2022-12-31 16:18] LABS: CREATININE 0.5 mg/dL (0.55-1.3)
[2022-12-31 16:19] LABS: BILIRUBIN,TOTAL 0.2 mg/dL (0.2-1); TOT PROT 4.8 g/dl (6.4-8.2)
[2022-12-31 16:22] LABS: N-TERMINAL BNP 278.9 pg/ml (5-125)
[2022-12-31 16:37] LABS: ANISOCYTOSIS 3+; MACROCYTOSIS 0; OVALOCYTE 2+; TEAR DROP CELLS 1+
[2022-12-31] MEDS ORDERED: FUROSEMIDE 40 MG/4 ML INJECTABLE VIAL IVPUSH ONE (19:02)
[2022-12-31] MEDS ORDERED: METOCLOPRAMIDE HCL INJECTION 10 MG/2 ML VIAL IVPUSH ONE (19:06)
[2022-12-31] MEDS ORDERED: KETOROLAC TROMETHAMINE 30 MG/1 ML VIAL IM ONE (19:07)
[2022-12-31] MEDS ORDERED: ACETAMINOPHEN 1000 MG/100 ML BAG IVPB PRN (19:07)
[2022-12-31] MEDS ORDERED: KETOROLAC TROMETHAMINE 30 MG/1 ML VIAL ONE (19:59)
[2022-12-31] MEDS ORDERED: FUROSEMIDE 40 MG/4 ML INJECTABLE VIAL ONE (19:59)
[2022-12-31] MEDS ORDERED: METOCLOPRAMIDE HCL INJECTION 10 MG/2 ML VIAL ONE (19:59)
[2022-12-31 21:10] VITALS: BMI 49.8
[2022-12-31] MEDS: HEPARIN NA (PORCINE) 5,000 UNITS/ML 1ML VIAL SQ SCH (21:35)
[2023-01-01] MEDS: ALBUMIN HUMAN 25% 12.5 GM/50 ML VIAL IV SCH ×4 (00:17→02:22)
[2023-01-01] MEDS: HEPARIN NA (PORCINE) 5,000 UNITS/ML 1ML VIAL SQ SCH ×2 (06:17→14:14)
[2023-01-01] MEDS: FUROSEMIDE 40 MG/4 ML INJECTABLE VIAL IVPUSH SCH ×2 (06:17→14:14)
[2023-01-01] MEDS ORDERED: ASPIRIN 81 MG CHEWABLE TABLETS PO SCH (10:00)
[2023-01-01] MEDS ORDERED: CLOPIDOGREL BISULFATE 75 MG TABLET (FP) PO SCH (10:00)
[2023-01-01 10:35] LABS: BASO % 0.7 % (0-2.0); EOS % 6.9 % (0-4.5); HEMATOCRIT 24.7 % (32.4-45.2); HEMOGLOBIN 8.1 GM/dL (10.7-15.3); LYMPH % 37.4 % (8-40); MCH 24.3 pg (25.7-33.7); MCHC 32.9 g/dl (32.0-36.0); MEAN CELL VOLUME 73.6 fl (80-96); MEAN PLT VOLUME 8.4 fl (7.5-11.1); PLATELET COUNT 215 10^3/uL (134-434); RBC 3.35 M/mm3 (3.60-5.2); RDW 22.7 % (11.6-15.6); WHITE BLOOD COUNT 3.8 K/mm3 (4.0-10.0)
[2023-01-01 10:53] LABS: POTASSIUM 3.7 mmol/L (3.5-5.1)
[2023-01-01 10:56] LABS: CHOLESTEROL 290 mg/dL (50-200)
[2023-01-01 10:57] LABS: LDL CHOLESTEROL (ONLY SJRH) 190 mg/dL (5-100)
[2023-01-01 10:58] LABS: HDL CHOLESTEROL 70 mg/dL (40-60)
[2023-01-01 11:06] LABS: CALCIUM 8.1 mg/dL (8.5-10.1)
[2023-01-01 11:08] LABS: BILIRUBIN,TOTAL 0.2 mg/dL (0.2-1); TOT PROT 4.4 g/dl (6.4-8.2)
[2023-01-01 11:10] LABS: CREATININE 0.6 mg/dL (0.55-1.3); PHOSPHOROUS 3.8 mg/dL (2.5-4.9)
[2023-01-01] MEDS: LISINOPRIL 5 MG TABLET PO SCH (14:14)
[2023-01-01] MEDS: ENOXAPARIN NA (PORCINE) 40 MG/0.4 ML DISP.SYRIN SQ SCH (21:23)
[2023-01-01] MEDS: ATORVASTATIN CA 40 MG TABLET (FP) PO SCH (21:24)
[2023-01-02] MEDS ORDERED: ACETAMINOPHEN 1000 MG/100 ML BAG IVPB ONE (01:11)
[2023-01-02] MEDS: FUROSEMIDE 40 MG/4 ML INJECTABLE VIAL IVPUSH SCH ×2 (06:46→13:24)
[2023-01-02] MEDS: ENOXAPARIN NA (PORCINE) 40 MG/0.4 ML DISP.SYRIN SQ SCH ×2 (09:11→21:29)
[2023-01-02] MEDS: LISINOPRIL 5 MG TABLET PO SCH (09:11)
[2023-01-02] MEDS: ATORVASTATIN CA 40 MG TABLET (FP) PO SCH (21:29)
[2023-01-03] MEDS: FUROSEMIDE 40 MG/4 ML INJECTABLE VIAL IVPUSH SCH ×2 (05:41→13:55)
[2023-01-03] MEDS: ENOXAPARIN NA (PORCINE) 40 MG/0.4 ML DISP.SYRIN SQ SCH ×2 (09:42→21:02)
[2023-01-03] MEDS: LISINOPRIL 5 MG TABLET PO SCH (09:43)
[2023-01-03 13:17] LABS: BASO % 0.9 % (0-2.0); EOS % 6.5 % (0-4.5); HEMATOCRIT 28.5 % (32.4-45.2); HEMOGLOBIN 9.2 GM/dL (10.7-15.3); LYMPH % 42.5 % (8-40); MCHC 32.3 g/dl (32.0-36.0); MEAN CELL VOLUME 74.3 fl (80-96); MEAN PLT VOLUME 8.5 fl (7.5-11.1); NEUT % 39.1 % (42.8-82.8); PLATELET COUNT 237 10^3/uL (134-434); RBC 3.84 M/mm3 (3.60-5.2); RDW 23.2 % (11.6-15.6); WHITE BLOOD COUNT 3.9 K/mm3 (4.0-10.0)
[2023-01-03 13:50] LABS: CALCIUM 8.2 mg/dL (8.5-10.1)
[2023-01-03 13:51] LABS: ALBUMIN 1.7 g/dl (3.4-5.0); BLOOD UREA NITROGEN 11.1 mg/dL (7-18); MAGNESIUM 1.9 mg/dL (1.8-2.4)
[2023-01-03 13:54] LABS: CREATININE 0.6 mg/dL (0.55-1.3); PHOSPHOROUS 4.4 mg/dL (2.5-4.9)
[2023-01-03 13:55] LABS: BILIRUBIN,TOTAL 0.4 mg/dL (0.2-1)
[2023-01-03 13:56] LABS: TOT PROT 4.6 g/dl (6.4-8.2)
[2023-01-03 16:09] LABS: ATYPICAL pANCA <1:20 titer (Neg:<1:20); C-ANCA <1:20 titer (Neg:<1:20)
[2023-01-03 16:09] LABS: TOTAL PROTEIN, URINE 1755.7 mg/dL (Not Estab.)
[2023-01-03] MEDS: ATORVASTATIN CA 40 MG TABLET (FP) PO SCH (21:02)
[2023-01-04] MEDS: FUROSEMIDE 40 MG/4 ML INJECTABLE VIAL IVPUSH SCH ×2 (05:52→14:07)
[2023-01-04] MEDS: ENOXAPARIN NA (PORCINE) 40 MG/0.4 ML DISP.SYRIN SQ SCH ×2 (09:37→21:16)
[2023-01-04] MEDS: LISINOPRIL 5 MG TABLET PO SCH (09:38)
[2023-01-04 09:47] LABS: BASO % 0.8 % (0-2.0); HEMATOCRIT 31.3 % (32.4-45.2); HEMOGLOBIN 10.3 GM/dL (10.7-15.3); LYMPH % 46.7 % (8-40); MCH 24.6 pg (25.7-33.7); MEAN CELL VOLUME 74.4 fl (80-96); MEAN PLT VOLUME 8.8 fl (7.5-11.1); MONO % 6.2 % (3.8-10.2); NEUT % 39.3 % (42.8-82.8); PLATELET COUNT 253 10^3/uL (134-434); RBC 4.21 M/mm3 (3.60-5.2); RDW 22.7 % (11.6-15.6); WHITE BLOOD COUNT 3.9 K/mm3 (4.0-10.0)
[2023-01-04 09:49] LABS: POTASSIUM 3.8 mmol/L (3.5-5.1)
[2023-01-04 09:55] LABS: ALBUMIN 1.9 g/dl (3.4-5.0); CALCIUM 8.3 mg/dL (8.5-10.1)
[2023-01-04 09:58] LABS: CREATININE 0.7 mg/dL (0.55-1.3); PHOSPHOROUS 3.9 mg/dL (2.5-4.9)
[2023-01-04 09:59] LABS: BILIRUBIN,TOTAL 0.2 mg/dL (0.2-1)
[2023-01-04 10:24] LABS: ANISOCYTOSIS 1+; MACROCYTOSIS 1+
[2023-01-04] MEDS: ATORVASTATIN CA 40 MG TABLET (FP) PO SCH (21:16)
[2023-01-05] MEDS: FUROSEMIDE 40 MG/4 ML INJECTABLE VIAL IVPUSH SCH ×2 (05:53→14:07)
[2023-01-05] MEDS: LISINOPRIL 5 MG TABLET PO SCH (09:38)
[2023-01-05] MEDS: ENOXAPARIN NA (PORCINE) 40 MG/0.4 ML DISP.SYRIN SQ SCH ×2 (09:38→21:18)
[2023-01-05 09:39] LABS: BASO % 0.8 % (0-2.0); EOS % 8.4 % (0-4.5); HEMATOCRIT 30.9 % (32.4-45.2); LYMPH % 44.5 % (8-40); MCH 24.2 pg (25.7-33.7); MCHC 32.5 g/dl (32.0-36.0); MEAN CELL VOLUME 74.5 fl (80-96); MEAN PLT VOLUME 8.3 fl (7.5-11.1); MONO % 10.3 % (3.8-10.2); PLATELET COUNT 236 10^3/uL (134-434); RBC 4.14 M/mm3 (3.60-5.2); RDW 22.2 % (11.6-15.6); WHITE BLOOD COUNT 3.7 K/mm3 (4.0-10.0)
[2023-01-05 09:57] LABS: POTASSIUM 3.9 mmol/L (3.5-5.1)
[2023-01-05 10:00] LABS: CALCIUM 8.2 mg/dL (8.5-10.1)
[2023-01-05 10:01] LABS: ALBUMIN 1.6 g/dl (3.4-5.0); BLOOD UREA NITROGEN 10.1 mg/dL (7-18)
[2023-01-05 10:04] LABS: CREATININE 0.6 mg/dL (0.55-1.3)
[2023-01-05 10:05] LABS: BILIRUBIN,TOTAL 0.4 mg/dL (0.2-1); TOT PROT 4.5 g/dl (6.4-8.2)
[2023-01-05] MEDS: ATORVASTATIN CA 40 MG TABLET (FP) PO SCH (21:18)
[2023-01-06] MEDS: FUROSEMIDE 40 MG/4 ML INJECTABLE VIAL IVPUSH SCH ×2 (05:36→14:29)
[2023-01-06 10:05] LABS: BASO % 0.6 % (0-2.0); EOS % 6.9 % (0-4.5); HEMATOCRIT 30.3 % (32.4-45.2); HEMOGLOBIN 9.9 GM/dL (10.7-15.3); LYMPH % 48.6 % (8-40); MCH 24.4 pg (25.7-33.7); MCHC 32.8 g/dl (32.0-36.0); MEAN CELL VOLUME 74.4 fl (80-96); MEAN PLT VOLUME 8.6 fl (7.5-11.1); MONO % 10.1 % (3.8-10.2); NEUT % 33.8 % (42.8-82.8); PLATELET COUNT 250 10^3/uL (134-434); RBC 4.07 M/mm3 (3.60-5.2); RDW 22.3 % (11.6-15.6); WHITE BLOOD COUNT 3.8 K/mm3 (4.0-10.0)
[2023-01-06] MEDS: LISINOPRIL 5 MG TABLET PO SCH (10:39)
[2023-01-06 11:11] LABS: POTASSIUM 4.1 mmol/L (3.5-5.1)
[2023-01-06 11:31] LABS: CALCIUM 8.1 mg/dL (8.5-10.1)
[2023-01-06 11:32] LABS: ALBUMIN 1.7 g/dl (3.4-5.0); BLOOD UREA NITROGEN 12.6 mg/dL (7-18); MAGNESIUM 2.1 mg/dL (1.8-2.4)
[2023-01-06 11:35] LABS: CREATININE 0.6 mg/dL (0.55-1.3); PHOSPHOROUS 3.9 mg/dL (2.5-4.9)
[2023-01-06 11:37] LABS: BILIRUBIN,TOTAL 0.2 mg/dL (0.2-1); TOT PROT 4.7 g/dl (6.4-8.2)
[2023-01-06] MEDS: ATORVASTATIN CA 40 MG TABLET (FP) PO SCH (21:23)
[2023-01-07] MEDS: FUROSEMIDE 40 MG/4 ML INJECTABLE VIAL IVPUSH SCH ×2 (05:27→13:09)
[2023-01-07 08:55] LABS: BASO % 0.9 % (0-2.0); EOS % 6.7 % (0-4.5); HEMATOCRIT 31.6 % (32.4-45.2); HEMOGLOBIN 10.1 GM/dL (10.7-15.3); MCH 24.2 pg (25.7-33.7); MCHC 32.1 g/dl (32.0-36.0); MEAN CELL VOLUME 75.3 fl (80-96); MEAN PLT VOLUME 7.9 fl (7.5-11.1); MONO % 10.4 % (3.8-10.2); PLATELET COUNT 233 10^3/uL (134-434); RBC 4.19 M/mm3 (3.60-5.2); RDW 22.5 % (11.6-15.6); WHITE BLOOD COUNT 4.1 K/mm3 (4.0-10.0)
[2023-01-07] MEDS: LISINOPRIL 5 MG TABLET PO SCH (09:04)
[2023-01-07 09:15] LABS: POTASSIUM 3.9 mmol/L (3.5-5.1)
[2023-01-07 09:21] LABS: CALCIUM 8.2 mg/dL (8.5-10.1)
[2023-01-07 09:22] LABS: ALBUMIN 1.6 g/dl (3.4-5.0); BLOOD UREA NITROGEN 13.3 mg/dL (7-18); MAGNESIUM 2.1 mg/dL (1.8-2.4)
[2023-01-07 09:25] LABS: CREATININE 0.6 mg/dL (0.55-1.3); PHOSPHOROUS 4.2 mg/dL (2.5-4.9)
[2023-01-07 09:26] LABS: BILIRUBIN,TOTAL 0.1 mg/dL (0.2-1); TOT PROT 4.4 g/dl (6.4-8.2)
[2023-01-07] MEDS ORDERED: FENTANYL CITRATE/PF 50 MCG/ML VIAL ONE (10:04)
[2023-01-07] MEDS ORDERED: MIDAZOLAM HCL 2 MG/2 ML SINGLE DOSE VIAL ONE (10:04)
[2023-01-07 10:12] LABS: ANISOCYTOSIS 3+; MACROCYTOSIS 0; OVALOCYTE 2+; TEAR DROP CELLS 1+
[2023-01-07] MEDS ORDERED: MIDAZOLAM HCL 2 MG/2 ML SINGLE DOSE VIAL IVPUSH ONE (11:00)
[2023-01-07] MEDS ORDERED: ONDANSETRON 4 MG/2 ML VIAL IVPUSH PRN (12:01)
[2023-01-07] MEDS: ATORVASTATIN CA 40 MG TABLET (FP) PO SCH (21:18)
[2023-01-08] MEDS: FUROSEMIDE 40 MG/4 ML INJECTABLE VIAL IVPUSH SCH ×2 (06:12→13:10)
[2023-01-08 09:00] LABS: HEMATOCRIT 31.7 % (32.4-45.2); HEMOGLOBIN 10.3 GM/dL (10.7-15.3); MCH 24.6 pg (25.7-33.7); MCHC 32.6 g/dl (32.0-36.0); MEAN CELL VOLUME 75.4 fl (80-96); MEAN PLT VOLUME 9.2 fl (7.5-11.1); PLATELET COUNT 241 10^3/uL (134-434); RDW 22.1 % (11.6-15.6); WHITE BLOOD COUNT 4.7 K/mm3 (4.0-10.0)
[2023-01-08] MEDS: LISINOPRIL 5 MG TABLET PO SCH (09:12)
[2023-01-08] MEDS ORDERED: ACETAMINOPHEN 1000 MG/100 ML BAG IVPB ONE ×2 (09:16→11:44)
[2023-01-08 09:30] LABS: CALCIUM 8.5 mg/dL (8.5-10.1)
[2023-01-08 09:31] LABS: ALBUMIN 1.7 g/dl (3.4-5.0); BLOOD UREA NITROGEN 17.3 mg/dL (7-18)
[2023-01-08 09:34] LABS: CREATININE 0.7 mg/dL (0.55-1.3)
[2023-01-08 09:36] LABS: BILIRUBIN,TOTAL 0.2 mg/dL (0.2-1); TOT PROT 4.7 g/dl (6.4-8.2)
[2023-01-08] MEDS: ENOXAPARIN NA (PORCINE) 40 MG/0.4 ML DISP.SYRIN SQ SCH ×2 (10:23→21:35)
[2023-01-08] MEDS ORDERED: CYCLOBENZAPRINE HCL 5 MG TABLET PO ONE (11:45)
[2023-01-08] MEDS ORDERED: ACETAMINOPHEN 325 MG TABLET (FP) PO PRN (11:54)
[2023-01-08] MEDS: ATORVASTATIN CA 40 MG TABLET (FP) PO SCH (21:35)
[2023-01-08] MEDS ORDERED: SENNOSIDES 8.6MG TABLET (FP) PO PRN (22:55)
[2023-01-09] MEDS: FUROSEMIDE 40 MG/4 ML INJECTABLE VIAL IVPUSH SCH ×2 (06:13→13:44)
[2023-01-09 08:18] LABS: HEMATOCRIT 30.7 % (32.4-45.2); HEMOGLOBIN 10.1 GM/dL (10.7-15.3); MCH 24.5 pg (25.7-33.7); MCHC 32.8 g/dl (32.0-36.0); MEAN CELL VOLUME 74.7 fl (80-96); MEAN PLT VOLUME 9.2 fl (7.5-11.1); PLATELET COUNT 235 10^3/uL (134-434); RBC 4.11 M/mm3 (3.60-5.2); RDW 22.1 % (11.6-15.6); WHITE BLOOD COUNT 4.9 K/mm3 (4.0-10.0)
[2023-01-09 08:20] LABS: POTASSIUM 3.9 mmol/L (3.5-5.1)
[2023-01-09 08:36] LABS: ALBUMIN 1.6 g/dl (3.4-5.0); BLOOD UREA NITROGEN 19.9 mg/dL (7-18); CALCIUM 8.6 mg/dL (8.5-10.1)
[2023-01-09 08:39] LABS: CREATININE 0.7 mg/dL (0.55-1.3); TOT PROT 4.7 g/dl (6.4-8.2)
[2023-01-09 08:43] LABS: BILIRUBIN,TOTAL 0.3 mg/dL (0.2-1)
[2023-01-09] MEDS: LISINOPRIL 5 MG TABLET PO SCH (09:24)
[2023-01-09] MEDS: POLYETHYLENE GLYCOL (HEALTHYLAX) 3350 17 GM PACKET PO SCH (09:25)
[2023-01-09] MEDS: ENOXAPARIN NA (PORCINE) 40 MG/0.4 ML DISP.SYRIN SQ SCH ×2 (09:25→21:22)
[2023-01-09] MEDS ORDERED: predniSONE 20 MG TABLET (UD) PO SCH ×2 (15:45→15:53)
[2023-01-09] MEDS: ATORVASTATIN CA 40 MG TABLET (FP) PO SCH (21:23)
[2023-01-10] MEDS: FUROSEMIDE 40 MG/4 ML INJECTABLE VIAL IVPUSH SCH ×2 (05:37→13:19)
[2023-01-10] MEDS: LISINOPRIL 5 MG TABLET PO SCH (09:29)
[2023-01-10] MEDS: ENOXAPARIN NA (PORCINE) 40 MG/0.4 ML DISP.SYRIN SQ SCH (09:29)
[2023-01-10] MEDS: POLYETHYLENE GLYCOL (HEALTHYLAX) 3350 17 GM PACKET PO SCH (09:29)
[2023-01-10 10:18] VITALS: BP 133/63; PULSE 85; RESP 20; TEMP 98.3
== END 2023-01-10 18:41 | disposition home health service (06) | DRG 468 ==
LOC: JER 13:37 → JERBED 17:29 → J6S 20:31
PROVIDERS: ADMIT Internal Medicine; ATTEND Internal Medicine
PROC: 0TB03ZX Excision of Right Kidney, Percutaneous Approach, Diagnostic (ICD-10-PCS; principal; 2023-01-07)
DX: N26.9 Renal sclerosis, unspecified (principal); N04.9 Nephrotic syndrome with unspecified morphologic changes; E66.01 Morbid (severe) obesity due to excess calories; Z68.42 Body mass index [BMI] 45.0-49.9, adult; R60.1 Generalized edema; I73.89 Other specified peripheral vascular diseases; E78.5 Hyperlipidemia, unspecified; R80.9 Proteinuria, unspecified; J45.909 Unspecified asthma, uncomplicated; N17.9 Acute kidney failure, unspecified; L97.808 Non-pressure chronic ulcer of other part of unspecified lower leg with other specified severity; L08.9 Local infection of the skin and subcutaneous tissue, unspecified; E88.09 Other disorders of plasma-protein metabolism, not elsewhere classified
CPT/HCPCS: 0241U-QW; 36415; 50200; 71045-TC-FY; 76775-TC; 76942-TC; 80053; 80061; 81003; 82570; 83520; 83735; 83880; 84100; 84155; 84156; 84157; 84165; 84484; 84703; 85025; 85027; 86038; 86160; 86225; 86256; 86480; 87086; 87340; 87517; 87522; 88300-TC; 88329; 93005; 93010; 93970-TC; 93971-TC; 97116-GP; 97162-GP; 99285-25; J1644; P9047

== ENCOUNTER 2024-10-22 07:44 | Emergency (ER) | payer OTHER ==
[2024-10-22 07:53] VITALS: TEMP 98.5; BMI 39.0
[2024-10-22] MEDS ORDERED: FUROSEMIDE 40 MG/4 ML INJECTABLE VIAL ONE ×2 (10:10→15:03)
[2024-10-22] MEDS: FUROSEMIDE 40 MG/4 ML INJECTABLE VIAL IVPUSH ONE ×2 (10:29→15:12)
[2024-10-22 10:33] LABS: BASO % 0.8 % (0-2.0); EOS % 3.6 % (0-4.5); HEMATOCRIT 38.9 % (32.4-45.2); HEMOGLOBIN 12.9 GM/dL (10.7-15.3); LYMPH % 39.7 % (8-40); MCH 27.5 pg (25.7-33.7); MCHC 33.2 g/dl (32.0-36.0); MEAN PLT VOLUME 9.5 fl (7.5-11.1); MONO % 9.8 % (3.8-10.2); NEUT % 46.1 % (42.8-82.8); PLATELET COUNT 288 10^3/uL (134-434); RBC 4.69 M/mm3 (3.60-5.2); RDW 15.8 % (11.6-15.6); WHITE BLOOD COUNT 4.4 K/mm3 (4.0-10.0)
[2024-10-22 10:36] LABS: EPI CELLS >36 /uL (0-25.1); HYALINE CASTS 2 /uL (0-3.1); URINE APPEARANCE CLEAR; URINE BACTERIA 534 /uL (0-1359); URINE BILIRUBIN NEGATIVE (NEGATIVE); URINE COLOR YELLOW; URINE GLUCOSE (UA) NEGATIVE (NEGATIVE); URINE KETONE TRACE (NEGATIVE); URINE LEUK ESTERASE NEGATIVE (NEGATIVE); URINE NITRITE NEGATIVE (NEGATIVE); URINE PROTEIN 4+ (NEGATIVE); URINE WBC 44 /uL (0-25.8)
[2024-10-22 10:56] LABS: URINE RBC 36 /uL (0-23.9); YEAST NONE SEEN (NEGATIVE)
[2024-10-22 10:59] LABS: POTASSIUM 5.2 mmol/L (3.5-5.1)
[2024-10-22 11:00] LABS: CALCIUM 8.2 mg/dL (8.5-10.1)
[2024-10-22 11:01] LABS: ALBUMIN 1.5 g/dl (3.4-5.0); BLOOD UREA NITROGEN 10.5 mg/dL (7-18); MAGNESIUM 2.1 mg/dL (1.8-2.4)
[2024-10-22 11:04] LABS: CREATININE 0.4 mg/dL (0.55-1.3); PHOSPHOROUS 3.7 mg/dL (2.5-4.9)
[2024-10-22 11:05] LABS: BILIRUBIN,TOTAL 0.4 mg/dL (0.2-1)
[2024-10-22 11:06] LABS: TOT PROT 4.8 g/dl (6.4-8.2)
[2024-10-22 11:58] LABS: HIV INTERPRETATION NEGATIVE (NEGATIVE)
[2024-10-22 14:22] VITALS: BP 162/64; PULSE 78; RESP 16
== END 2024-10-22 16:34 | disposition home or self-care (01) ==
LOC: JER 07:44
PROC: 3E033GC Introduction of Other Therapeutic Substance into Peripheral Vein, Percutaneous Approach (ICD-10-PCS; principal; 2024-10-22)
PROC: 3E033GC Introduction of Other Therapeutic Substance into Peripheral Vein, Percutaneous Approach (ICD-10-PCS; 2024-10-22)
DX: R60.0 Localized edema (principal); M79.89 Other specified soft tissue disorders
CPT/HCPCS: 36415; 76775-TC; 76856-TC; 80053; 81003; 83735; 84100; 85025; 86803; 87389; 93005; 93010; 99285-25